=== PATIENT | male | born 1945 | race Caucasian/White ===

== ENCOUNTER 2023-05-17 11:54 | Inpatient (IN) ==
--- NOTE | 2023-05-17 12:49 | Emergency Department Note ---
Impression & Plan Osteomyelitis, Finger pain, Cellulitis ED Provider Note NAME: LILY DAVIS AGE: 78 SEX: M : 1945 ARRIVES VIA: Walk-In INFORMANT: Patient ED PROVIDER(S): Donnie Wilson DO CHIEF COMPLAINT: left finger pain HPI: Patient is a 78-year-old male who presents to the ER for left third finger pain. Patient notes that this has been present for the past week. Patient has been on antibiotics and notes that the swelling in the hand has gotten better as well as the redness of the finger. He denies any fevers. No chest pain or shortness of breath. No nausea, vomiting, or diarrhea. No dysuria, urgency, or frequency. PAST MEDICAL HISTORY:See Below PAST SURGICAL HISTORY:See Below FAMILY HISTORY:See Below SOCIAL HISTORY:See Below HOME MEDICATIONS:See Below ALLERGIES:See Below VITALS:See Below PHYSICAL EXAMINATION: GENERAL: Sitting up in bed, alert, well appearing, well nourished, no distress, non-toxic EYE EXAM: normal conjunctiva. OROPHARYNX: mucous membranes are moist NECK: supple, no nuchal rigidity, no adenopathy, non-tender LUNGS: Clear to auscultation. Normal chest wall mechanics HEART: no murmurs, S1 normal and S2 normal ABDOMEN: abdomen soft, non-tender, normo-active bowel sounds, no masses, no rebound or guarding. UPPER EXTREMITIES: Left third digit is swollen and erythematous with an obvious open wound at the distal phalanx with a small amount of green drainage. Tender to palpation. Radial pulse 2 out of 4. Flexion-extension left shoulder elbow wrist and grasp intact. LOWER EXTREMITIES: No pitting edema. NEURO EXAM: Normal sensorium, cranial nerves II-XII grossly intact, normal speech, no gross weakness of arms, no gross weakness of legs. MEDICAL DECISION MAKING: Patient is a 78-year-old male who presents to the ER for left third digit pain. Patient has been on antibiotics for the past week and symptoms are still presen t. IV was established blood work was obtained. Labs show no significant leukocytosis or anemia. BMP with mild hyponatremia 132. LFTs bilirubin was unremarkable. X-ray of the left third digit does suggest osteomyelitis. Patient was given vancomycin and Rocephin. Updated bedside. Discussed with the hospitalist for further evaluation management treatment. Triage Nursing notes reviewed. Limited review of prior medical records performed Vital Signs: reviewed and remarkable for no significant abnormalities Differential diagnosis: Cellulitis, abscess, MRSA infection, DVT, necrotizing fasciitis, dermatitis, drug eruption, allergic reaction, as well as other pathologies. ER treatment provided: See below Diagnostics interpreted by me include EKG and cardiac monitoring as listed below: -Cardiac Monitoring: An order was placed for continuous cardiac monitoring. The monitor shows a rate of 80 with sinus rhythm. -ECG: none -Laboratory studies:Interpreted by me as stated above in MDM and shown below. Imaging studies: Xrays: As interpreted by me: X-ray left third digit with clear breakdown of the bone CTs show: none Consultation(s): As described in MDM Procedures:none Critical Care: None Past Med/Surg History Social History Smoking Status: Never smoker Preferred Language: French Feels Safe at Home: Yes Allergies Allergies Allergy/AdvReac Type Severity Reaction Status Date / Time No Known Allergies Allergy Unverified 05/17/23 14:20 Home Meds Home Medications Medication Instructions Recorded Confirmed aspirin 81 mg tablet,delayed 81 mg PO QAM 05/17/23 05/17/23 release Results & Data (ED) Vital Signs Vital Signs - 24 hr 05/17/23 12:02 05/17/23 12:18 05/17/23 12:51 Temperature 36.5 C Temperature Source Temporal Artery Scan Pulse Rate 64 83 72 Pulse Rate [Finger] Respiratory Rate 19 16 Respiratory Effort / Characteristics Respiratory Depth Blood Pressure 164/81 H Blood Pressure [Right Arm] Blood Pressure Mean 108 Blood Pressure Mean [Right Arm] Pulse Oximetry 96 95 Oxygen Delivery Method Room Air Sepsis Recent Fever Within 48 Hours No Sepsis New/Unexplained Change in Mental Status N/A Sepsis Action Taken by Nursing No Action Required 05/17/23 14:07 Temperature Temperature Source Pulse Rate Pulse Rate [Finger] 76 Respiratory Rate 16 Respiratory Effort / Characteristics Non-Labored Respiratory Depth Normal Blood Pressure Blood Pressure [Right Arm] 106/71 Blood Pressure Mean Blood Pressure Mean [Right Arm] 82 Pulse Oximetry 97 Oxygen Delivery Method Room Air Sepsis Recent Fever Within 48 Hours Sepsis New/Unexplained Change in Mental Status Sepsis Action Taken by Nursing Laboratory Data 05/17/23 13:00 05/17/23 13:00 Lab Results 05/17/23 05/17/23 Range/Units 13:00 13:00 WBC 6.49 (4.8-10.8) K/ul RBC 5.53 (4.70-6.10) M/uL Hgb 15.8 (14.0-18.0) g/dl Hct 46.7 (42.0-52.0) % MCV 84.4 (80.0-100.0) fL MCH 28.6 (25.0-34.0) pg MCHC 33.8 (32.0-36.0) g/dL RDW Std Deviation 48.9 H (36.4-46.3) fL RDW Coeff of Sylvia 16.0 H (11.5-14.5) % Plt Count 233 (130-400) K/uL MPV 9.3 L (9.4-12.4) fL Immature Gran % (Auto) 0.3 % Neut % (Auto) 73.4 % Lymph % (Auto) 14.2 % Edgar % (Auto) 10.3 % Eos % (Auto) 1.2 % Baso % (Auto) 0.6 % Neut # (Auto) 4.76 (1.40-6.50) K/uL Lymph # (Auto) 0.92 L (1.2-3.4) K/uL Edgar # (Auto) 0.67 H (0.11-0.59) K/uL Eos # (Auto) 0.08 (0-0.50) K/uL Baso # (Auto) 0.04 (0-0.2) K/uL Immature Gran # (Auto) 0.02 (0.01-0.20) K/uL Sodium 132 L (136-145) mmol/L Potassium 4.1 (3.5-5.1) mmol/L Chloride 100 (98-107) mmol/L Carbon Dioxide 25 (21-32) mmol/L Anion Gap 7 (3-11) BUN 7 (6-23) mg/dl Creatinine 0.61 (0.6-1.4) mg/dl Est Cr Clr Drug Dosing 99.7 ml/min Est GFR ( Amer) 112.4 ml/min Est GFR (Non-Af Amer) 97.0 ml/min BUN/Creatinine Ratio 11.5 (10-20) Glucose 100 H (70-99(Fasting)) mg/dl Calcium 8.9 (8.6-10.3) mg/dl Total Bilirubin 0.7 (0.2-1.0) mg/dl AST 18 (13-39) U/L ALT 14 (7-52) U/L Alkaline Phosphatase 93 (34-104) U/L Total Protein 7.4 (6.0-8.3) gm/dl Albumin 3.6 (3.4-5.0) gm/dl Globulin 3.8 (2.5-4.0) gm/dl Albumin/Globulin Ratio 0.9 (0.9-2) Administered Medications Vancomycin HCl 1,500 mg/ (Sodium Chloride) 530 mls @ 200 mls/hr IV NOW ONE Stop: 05/17/23 16:17 Last Admin: 05/17/23 14:03 Dose: 200 mls/hr Documented By: JAIR Imaging Data Radiologist's Impression: Finger X-Ray 05/17/23 12:47 XR finger(s) LT min 2V CLINICAL HISTORY: Left third finger injury with pain. COMPARISON STUDY: None. FINDINGS: Diffuse soft tissue swelling within the left third digit most pronounced distally. Soft tissue irregularity/laceration at the distal left third finger. Near complete bony destruction of the left third finger distal phalanx. Therefore, this is consistent with an osteomyelitis. IMPRESSION: Near complete bony destruction of the left third finger distal phalanx consistent with an osteomyelitis. ACT 112: Negative or not required by law. Electronically signed by: Carlos Roman M.D. 05/17/2023 1:17 PM Discharge Plan Visit Data Chief Complaint: Infection Stated Complaint: L MIDDLE FINGER INFECTED ED Provider: Donnie Wilson Discharge Problem: Osteomyelitis, Finger pain, Cellulitis Patient Disposition: Admitted As Inpatient Discharge Instructions Interventions: ED Discharge Assessment Last Done: 05/17/23 15:52
--- NOTE | 2023-05-17 13:19 | XRay Report ---
XR finger(s) LT min 2V CLINICAL HISTORY: Left third finger injury with pain. COMPARISON STUDY: None. FINDINGS: Diffuse soft tissue swelling within the left third digit most pronounced distally. Soft tis isac irregularity/laceration at the distal left third finger. Near complete bony destruction of the le ft third finger distal phalanx. Therefore, this is consistent with an osteomyelitis. IMPRESSION: Near complete bony destruction of the left third finger distal phalanx consistent with a n osteomyelitis. ACT 112: Negative or not required by law. Electronically signed by: Carlos Roman M.D. 05/17/2023 1:17 PM
[2023-05-17 13:23] LABS: Basophils # (auto) 0.04 K/uL (0-0.2); Basophils % (auto) 0.6 %; Eosinophils # (auto) 0.08 K/uL (0-0.50); Eosinophils % (auto) 1.2 %; Hematocrit (blood only) 46.7 % (42.0-52.0); Hemoglobin 15.8 g/dl (14.0-18.0); Immature Granulocytes # (auto) 0.02 K/uL (0.01-0.20); Immature Granulocytes % (auto) 0.3 %; Lymphocytes # (auto) 0.92 K/uL (1.2-3.4); Lymphocytes % (auto) 14.2 %; Mean Corpuscular Hemoglobin 28.6 pg (25.0-34.0); Mean Corpuscular Hgb Conc 33.8 g/dL (32.0-36.0); Mean Corpuscular Volume 84.4 fL (80.0-100.0); Mean Platelet Volume 9.3 fL (9.4-12.4); Monocytes # (auto) 0.67 K/uL (0.11-0.59); Monocytes % (auto) 10.3 %; Neutrophils # (auto) 4.76 K/uL (1.40-6.50); Neutrophils % (auto) 73.4 %; Platelet Count 233 K/uL (130-400); RDW Standard Deviation 48.9 fL (36.4-46.3); Red Blood Count 5.53 M/uL (4.70-6.10); White Blood Count 6.49 K/ul (4.8-10.8)
[2023-05-17] MEDS ORDERED: cefTRIAXone SODIUM 2,000 MG/70 ML BAG IV STA (13:39)
[2023-05-17] MEDS ORDERED: VANCOMYCIN CONSULT ACTIVE PRN ×2 (13:39→15:56)
[2023-05-17] MEDS ORDERED: VANCOMYCIN HCL 1,500 MG in SODIUM CHLORIDE 0.9% 500 ML IV ONE (13:39)
[2023-05-17 13:40] LABS: Albumin Globulin Ratio 0.9 (0.9-2); Albumin Level 3.6 gm/dl (3.4-5.0); BUN Creatinine Ratio 11.5 (10-20); Bilirubin,Total 0.7 mg/dl (0.2-1.0); Calcium 8.9 mg/dl (8.6-10.3); Creatinine Clr Calc Pharmacy 99.7 ml/min; Est GFR (African American) 112.4 ml/min; Globulin 3.8 gm/dl (2.5-4.0); Potassium 4.1 mmol/L (3.5-5.1); Total Protein 7.4 gm/dl (6.0-8.3)
--- NOTE | 2023-05-17 15:13 | History & Physical Report ---
Date of Service May 17, 2023 Assessment & Plan (1) Finger osteomyelitis, left: (2) Cellulitis: Plan: Patient is 78 y/o M with PMH HTN, h/o TBI and intracranial hemorrhage in 10/2022 presented to ER with c/o left 3rd finger swelling x 2 weeks after reported injur y from dog leash. Outpatient trial of cefadroxil with minimal improvement No signs sepsis. No leukocytosis L Finger Xray: Near complete bony destruction of the left third finger distal phalanx consistent with an osteomyelitis per radiologist. Reviewed by myself with interpretation bony destruction distal phalanx of left 3rd digit Obtain CXR and EKG for pre-op evaluation for possible surgical intervention needs Cefepime, vancomycin Tylenol, oxycodone prn pain NPO midnight Ortho consult CBC, BMP in am (3) Hyponatremia: Plan: Na: 132. Was 136 on 11/14/22 Repeat BMP in am (4) HTN (hypertension): Plan: H/O HTN. No longer on medications. Previously on lisinopril/HCTZ BP in ER 164/81, 106/71 We will monitor BP, if continues to be elevated may need to consider resuming lisinopril (5) History of traumatic brain injury: (6) History of intracranial hemorrhage: Plan: History of fall and intracranial hemorrhage, TBI, C2 fracture in 10/2022. Hospitalized at [facility]. Required rehab at [facility] (7) Tobacco use: Plan: Chewing tobacco Denies nicotine patch currently DVT Prophylaxis SCDs for now Full Code as per discussion with pt Follows with Dr Iyer in [place] for routine care Pt was seen and care coordinated with Dr Murphy. See addendum I spent a total of 75 minutes reviewing notes, outpatient records, labs, medication, coordinating, documenting and providing care for this patient excluding time spent in the performance of separately billed services. History of Present Illness Chief Complaint: Left 3rd Finger swelling Primary Care Provider: Alexis Iyer Patient is 78 y/o M with PMH HTN, h/o TBI and intracranial hemorrhage in 10/2022 presented to ER with c/o left 3rd finger swelling x 2 weeks. Patient states approximately 2 weeks ago noticed a "blood blister" to distal left third finger. He states he was walking his dog when the leash got caught on end of third finger. He reports fingernail fell off. Subsequently he states had diffuse erythema and edema of left finger that extended to left hand. PCP started patient on antibiotic. Pharmacy prescriptions filled reviewed and was prescribed cefadroxil 500 mg twice daily x10 days. Reports started taking on 05/08/2023. Since taking antibiotic patient states has had decreased edema and erythema to hand. He reports distal finger is mildly uncomfortable. Past couple days as noted purulent drainage from distal left third finger. Denies any other trauma or injury. Denies any known history of MRSA. Denies fever/chills, diaphoresis, N/V/D/C, BRO, dizziness, CP, SOB, cough, sore throat, rhinorrhea, abdominal pain, paresthesias, weakness, other extremity edema, rashes, urinary symptoms. Allergies Allergy/AdvReac Type Severity Reaction Status Date / Time No Known Allergies Allergy Unverified 05/17/23 14:20 Home Medications Medication Instructions Recorded Confirmed Type aspirin 81 mg tablet,delayed 81 mg PO QAM 05/17/23 05/17/23 History release cefadroxil 500 mg capsule 500 mg PO BID 05/17/23 05/17/23 History Past Med/Surg History Medical History History of intracranial hemorrhage History of traumatic brain injury HTN (hypertension) Tobacco use Surgical History History of ankle surgery Social History Smoking Status: Never smoker Tobacco Type: Smokeless Tobacco (Dip or Chew) Do You Dip or Chew Tobacco: Yes (1 can every 3 days); Hx Alcohol Use: No Hx Substance Use: No Preferred Language: Greenlandic Communication Ability: Effective Gas Maker Required: No Beliefs That Will Affect Care: None Current Living Situation: Alone Other Information That Helps Us Care for You: No Feels Safe at Home: Yes Safety Concerns: Feels Safe At This Time Assistive Devices: Cane Review of Systems Review of Systems: All systems reviewed & are unremarkable except as noted in HPI & below Physical Exam Physical Exam: General: no distress, WDWN Head: normocephalic, atraumatic Eyes: conjunctiva non-injected, anicteric ENT: normal inspection external ears, nose, mucous membranes moist Neck: supple, trachea midline Lungs: clear, no respiratory distress, no wheezing/rhonchi/rales CV: RRR, no murmur, no pretibial edema Abd: normal BS, soft, non-tender Ext: no cyanosis, no calf tenderness; LUE: +left hand with mild edema, 3rd finger with diffuse erythema and severe edema, distal tuft finger with purulent drainage, fingernail is missing Neuro: A&O x 3, +slow, unsteady gait, no other focal deficits noted, normal affect Skin: warm, dry Results & Data Results & Data Vital Signs (Past 12 Hours) Vital Signs Temp Pulse Pulse Resp BP BP Pulse Ox 05/17/23 14:07 76 16 106/71 97 05/17/23 12:51 72 16 95 05/17/23 12:18 83 05/17/23 12:02 36.5 C 64 19 164/81 H 96 O2 Del Method 05/17/23 14:07 Room Air 05/17/23 12:51 05/17/23 12:18 05/17/23 12:02 Room Air Laboratory Results Short CBC 05/17/23 Range/Units 13:00 WBC 6.49 (4.8-10.8) K/ul Hgb 15.8 (14.0-18.0) g/dl Hct 46.7 (42.0-52.0) % Plt Count 233 (130-400) K/uL BMP 05/17/23 13:00 Sodium 132 L Potassium 4.1 Chloride 100 Carbon Dioxide 25 BUN 7 Creatinine 0.61 Glucose 100 H Calcium 8.9 Liver Function 05/17/23 Range/Units 13:00 Total Bilirubin 0.7 (0.2-1.0) mg/dl AST 18 (13-39) U/L ALT 14 (7-52) U/L Alkaline Phosphatase 93 (34-104) U/L Albumin 3.6 (3.4-5.0) gm/dl Diagnostic Findings Finger X-Ray 05/17/23 12:47 XR finger(s) LT min 2V CLINICAL HISTORY: Left third finger injury with pain. COMPARISON STUDY: None. FINDINGS: Diffuse soft tissue swelling within the left third digit most pronounced distally. Soft tissue irregularity/laceration at the distal left third finger. Near complete bony destruction of the left third finger distal phalanx. Therefore, this is consistent with an osteomyelitis. IMPRESSION: Near complete bony destruction of the left third finger distal phalanx consistent with an osteomyelitis. ACT 112: Negative or not required by law. Electronically signed by: Carlos Roman M.D. 05/17/2023 1:17 PM Chest X-Ray 05/17/23 15:48 XR chest 1V portable HISTORY: pre-op COMPARISON: None. FINDINGS: No pneumothorax. No pleural effusions. The cardiac silhouette is mildly enlarged. No focal lung consolidations to suggest a pneumonia. There is mild diffuse interstitial thickening. This could be chronic or represent mild congestive change. Degenerative changes noted within the shoulders. No acute fractures. IMPRESSION: 1. Mild cardiomegaly. 2. Mild diffuse interstitial thickening. This could be chronic or represent developing congestive change. ACT 112: Negative or not required by law. Electronically signed by: Carlos Roman M.D. 05/17/2023 4:13 PM Code Status & VTE Plan VTE Prophylaxis Plan VTE Prophylaxis will be ordered: Yes Supervising Physician Co-Signing Physician Notes Pt seen and examined by myself, Cary Murphy MD on the day of service. Care was coordinated with Keiry Blanc PA-C. Please refer to her note for additional information. 78yoM admitted for IV abx to treat left middle finger osteomyelitis. On cefepime and vancomycin. Ortho consult. Otherwise as above.
[2023-05-17] MEDS ORDERED: POLYETHYLENE (MIRALAX) 17 GM PACK PO PRN (15:56)
[2023-05-17] MEDS ORDERED: ACETAMINOPHEN 325 MG TAB PO PRN (15:56)
[2023-05-17] MEDS ORDERED: oxyCODONE HCL IR 5 MG TAB (IMMEDIATE RELEASE) PO PRN (15:56)
[2023-05-17] MEDS ORDERED: VANCOMYCIN HCL 1,250 MG in SODIUM CHLORIDE 0.9% 500 ML IV SCH (15:56)
[2023-05-17] MEDS ORDERED: ONDANSETRON INJ 2 MG/ML 2 ML VIAL IV PRN (15:56)
--- NOTE | 2023-05-17 16:16 | XRay Report ---
XR chest 1V portable HISTORY: pre-op COMPARISON: None. FINDINGS: No pneumothorax. No pleural effusions. The cardiac silhouette is mildly enlarged. No focal lung consolidations to suggest a pneumonia. There is mild diffuse interstitial thickening. This could be chronic or represent mild congestive change. Degenerative changes noted within the shoulders. No acute fractures. IMPRESSION: 1. Mild cardiomegaly. 2. Mild diffuse interstitial thickening. This could be chronic or represent developing congestive magdi nge. ACT 112: Negative or not required by law. Electronically signed by: Carlos Roman M.D. 05/17/2023 4:13 PM
--- NOTE | 2023-05-17 16:38 | Pharmacy Report ---
Pharmacy PK ABX Note - Date of Service May 17, 2023 - Assessment and Plan Assessment 78 year old M receiving vancomycin and cefepime for treatment of bone and joint infection. Renal function stable. No culture data. Day #1 of antimicrobial therapy. Plan Vancomycin * Loading dose: 1500 mg IV x 1 * Maintenance dose: 1250 mg IV every 12 hours * Regimen is predicted to achieve target AUC/BEATRIZ of 400-600 mg/L.hr * Will obtain a level around steady state if vancomycin continued. Pharmacy will continue to follow and will adjust dose/frequency as necessary. Thank you. Pharmacy has transitioned to AUC monitoring for vancomycin. AUC/BEATRIZ is the preferred PK/PD target and is associated with decreased risk of nephrotoxicity compared to traditional trough targets.
[2023-05-17] MEDS: CEFEPIME 2,000 MG in SYRINGE 0 ML IV SCH ×2 (17:36→23:58)
[2023-05-17] MEDS ORDERED: Nursing to Pharmacy Communication SCH (18:00)
[2023-05-17] MEDS: VANCOMYCIN HCL 1,250 MG in SODIUM CHLORIDE 0.9% 250 ML IV SCH (20:52)
[2023-05-17] MEDS ORDERED: SODIUM CHLORIDE 0.9% 1000ML 1,000 ML IV SCH (23:30)
[2023-05-18 06:08] LABS: Hematocrit (blood only) 47.9 % (42.0-52.0); Hemoglobin 15.5 g/dl (14.0-18.0); Mean Corpuscular Hemoglobin 28.1 pg (25.0-34.0); Mean Corpuscular Hgb Conc 32.4 g/dL (32.0-36.0); Mean Corpuscular Volume 86.9 fL (80.0-100.0); Mean Platelet Volume 9.1 fL (9.4-12.4); Platelet Count 212 K/uL (130-400); RDW Coefficient of Variation 15.9 % (11.5-14.5); RDW Standard Deviation 49.7 fL (36.4-46.3); Red Blood Count 5.51 M/uL (4.70-6.10); White Blood Count 5.57 K/ul (4.8-10.8)
[2023-05-18 06:26] LABS: BUN Creatinine Ratio 13.5 (10-20); Calcium 8.6 mg/dl (8.6-10.3); Creatinine Clr Calc Pharmacy 82.2 ml/min; Est GFR (African American) 103.8 ml/min; Est GFR (Non-African American) 89.6 ml/min; Potassium 4.3 mmol/L (3.5-5.1)
[2023-05-18] MEDS: CEFEPIME 2,000 MG in SYRINGE 0 ML IV SCH ×2 (07:42→15:34)
[2023-05-18] MEDS: VANCOMYCIN HCL 1,250 MG in SODIUM CHLORIDE 0.9% 250 ML IV SCH (07:45)
[2023-05-18] MEDS ORDERED: GADOBUTROL 30ML VIAL IV ONE (11:17)
--- NOTE | 2023-05-18 11:36 | Electrocardiogram Report ---
Test Reason : Blood Pressure : / mmHG Vent. Rate : 085 BPM Atrial Rate : 085 BPM P-R Int : 164 ms QRS Dur : 082 ms QT Int : 398 ms P-R-T Axes : 067 062 070 degrees QTc Int : 473 ms Sinus rhythm with occasional Premature ventricular complexes Low voltage QRS Borderline ECG No previous ECGs available Confirmed by Magdiel Jimenez ([id number]) on 05/18/2023 11:36:19 AM Referred By: REFERRED SELF Confirmed By:Magdiel Jimenez
--- NOTE | 2023-05-18 12:48 | Orthopedic Consultation ---
Date of Consultation May 18, 2023 Assessment & Plan (1) Finger osteomyelitis, left: 78-year-old male with left middle finger distal phalanx osteomyelitis Pain control IV antibiotic therapy Medical management Elevate left upper extremity MRI ordered. Pending results of MRI will determine definitive intervention History of Present Illness Reason for Consultation: Left middle finger wound/osteomyelitis Attending Physician: Shar Fleming MD History of Present Illness 78-year-old male presenting with a chief complaint of left middle finger distal phalanx wound and erythema. He notes that several weeks ago he was walking his dog whenever the leash became caught between his walker and his finger causing a wound over the dorsal aspect of his hand. Since that time that is progressed. It is not responded well to oral antibiotics. He presented to the emergency department where radiographs were obtained concerning for osteomyelitis and was started on IV antibiotic therapy. Orthopedics was consulted for recommendations. Allergies Allergy/AdvReac Type Severity Reaction Status Date / Time No Known Allergies Allergy Unverified 05/17/23 14:20 Home Medications Medication Instructions Recorded Confirmed Type aspirin 81 mg tablet,delayed 81 mg PO QAM 05/17/23 05/17/23 History release cefadroxil 500 mg capsule 500 mg PO BID 05/17/23 05/17/23 History Patient History Medical History History of intracranial hemorrhage History of traumatic brain injury HTN (hypertension) Tobacco use Surgical History History of ankle surgery Social History Smoking Status: Never smoker Tobacco Type: Smokeless Tobacco (Dip or Chew) Do You Dip or Chew Tobacco: Yes (1 can every 3 days); Hx Alcohol Use: No Hx Substance Use: No Preferred Language: Tamazight Communication Ability: Effective Woodyard Operator Required: No Beliefs That Will Affect Care: None Current Living Situation: Alone Other Information That Helps Us Care for You: No Feels Safe at Home: Yes Safety Concerns: Feels Safe At This Time Assistive Devices: Cane Physical Exam Constitutional: NAD, AAOx3 Musculoskeletal: LUE - wound and swelling over left middle finger distal phalanx - silt srad/med/uln - full painless AROM of middle finger +rad pulse Results & Data Vital Signs (Past 12 Hours) Vital Signs Temp Pulse Resp BP Pulse Ox O2 Del Method 05/18/23 07:33 36.4 C L 76 18 153/87 H 97 Room Air Diagnostic Findings Radiographs of the left hand demonstrate erosive changes of the middle finger distal phalanx
--- NOTE | 2023-05-18 12:51 | Hospitalist Progress Note ---
Date of Service May 18, 2023 Assessment & Plan (1) Finger osteomyelitis, left: (2) Cellulitis: Plan: Patient is 78 y/o M with PMH HTN, h/o TBI and intracranial hemorrhage in 10/2022 presented to ER with c/o left 3rd finger swelling x 2 weeks after reported injur y from dog leash. Outpatient trial of cefadroxil with minimal improvement Left middle finger osteomyelitis --Finger X ray:Near complete bony destruction of the left third finger distal phalanx consistent with an osteomyelitis. MRI:pending Continue vancomycin, cefepime No pain reported Depression orthopedics input Likely needs finger amputation (3) Hyponatremia: Plan: Resolved with IV fluids Sodium 137 today Monitor (4) HTN (hypertension): Plan: H/O HTN. No longer on medications. Previously on lisinopril/HCTZ BP slightly elevated We will consider restarting medications as needed Monitor BP (5) History of traumatic brain injury: (6) History of intracranial hemorrhage: Plan: H/O fall and intracranial hemorrhage, TBI, C2 fracture in 10/2022. Hospitalized at [facility]. (7) Tobacco use: Plan: Chewing tobacco Denies nicotine patch currently DVT Px Lovenox SQ Code Status Full Code Admission and Anticipated Discharge Date Admission Date: May 17, 2023 Subjective Patient is seen and examined at bedside Reports left middle finger wound draining, swollen, erythematous Denies any pain of the finger Also denies any chest pain, dyspnea, dizziness, nausea, vomiting, abdominal pain No other complaints Review of Systems Review of Systems: All systems reviewed & are unremarkable except as noted in Subjective Physical Exam Physical Exam: Physical Exam: Vitals signs as noted above General Appearance:Moderately built and nourished, no apparent distress Head: normocephalic, Atraumatic Eyes: normal inspection, EOMI Neck: supple, Trachea midline Respiratory/Chest: Normal breath sounds, CTA, No accessory muscle use Cardiovascular: S1, S2, No murmur Abdomen/GI:Soft, Non tender, Bowel sounds present Extremities/Musculoskeletal:normal inspection, no edema, Left distal phalanx swollen, erythema, wound, nontender Neurologic/Psych:AAOX3, grossly no focal neurological deficits Skin: normal color, warm Results & Data Results & Data Vital Signs (Past 12 Hours) Vital Signs Temp Pulse Resp BP Pulse Ox O2 Del Method 05/18/23 07:33 36.4 C L 76 18 153/87 H 97 Room Air Laboratory Results Short CBC 05/17/23 05/18/23 Range/Units 13:00 05:24 WBC 6.49 5.57 (4.8-10.8) K/ul Hgb 15.8 15.5 (14.0-18.0) g/dl Hct 46.7 47.9 (42.0-52.0) % Plt Count 233 212 (130-400) K/uL BMP 05/17/23 05/18/23 13:00 05:24 Sodium 132 L 137 Potassium 4.1 4.3 Chloride 100 106 Carbon Dioxide 25 25 BUN 7 10 Creatinine 0.61 0.74 Glucose 100 H 80 Calcium 8.9 8.6 Liver Function 05/17/23 Range/Units 13:00 Total Bilirubin 0.7 (0.2-1.0) mg/dl AST 18 (13-39) U/L ALT 14 (7-52) U/L Alkaline Phosphatase 93 (34-104) U/L Albumin 3.6 (3.4-5.0) gm/dl
--- NOTE | 2023-05-18 14:52 | Magnetic Resonance Report ---
MR hand LT wo/w con HISTORY: third finger osteomyelitis TECHNIQUE: Multiplanar multisequence MRI of the left hand was performed both before and after the int ravenous administration of 8 cc of Gadavist contrast. COMPARISON STUDY: Left middle finger radiograph 05/17/2023. FINDINGS: There is again noted near complete bony destruction the distal phalanx of the left middle f krysten consistent with osteomyelitis. There is T2 hyperintense, T1 hypointense marrow signal within th e mid to distal left third finger middle phalanx. This also demonstrates enhancement. Therefore, this is consistent with an additional site of osteomyelitis. No abnormal marrow signal or enhancement wit hin the proximal phalanx of the middle finger. The remaining osseous structures demonstrate a normal marrow signal intensity. Degenerative changes within the interphalangeal joints again noted. Soft tis isac swelling/edema throughout the middle finger associated enhancement consistent with a cellulitis. Probable dorsal skin ulceration seen at the distal finger. No loculated fluid collections to suggest an abscess. No acute fracture or dislocation. IMPRESSION: 1. Osteomyelitis involving the middle and distal phalanges of the left middle finger as described abo ve near complete bony destruction of the distal phalanx. 2. No loculated fluid collections to suggest an abscess. 3. No additional sites of osteomyelitis within the left hand. ACT 112: Negative or not required by law. Electronically signed by: Carlos Roman M.D. 05/18/2023 2:49 PM
[2023-05-18] MEDS: ENOXAPARIN INJ 40 MG/0.4 ML SYR SQ SCH (15:30)
[2023-05-18] MEDS: VANCOMYCIN HCL 1,000 MG in SODIUM CHLORIDE 0.9% 250 ML IV SCH (20:46)
[2023-05-19] MEDS: CEFEPIME 2,000 MG in SYRINGE 0 ML IV SCH ×4 (00:16→23:47)
[2023-05-19 06:00] LABS: Hematocrit (blood only) 46.2 % (42.0-52.0); Hemoglobin 15.4 g/dl (14.0-18.0); Mean Corpuscular Hemoglobin 28.6 pg (25.0-34.0); Mean Corpuscular Hgb Conc 33.3 g/dL (32.0-36.0); Mean Corpuscular Volume 85.9 fL (80.0-100.0); Mean Platelet Volume 9.1 fL (9.4-12.4); Platelet Count 213 K/uL (130-400); RDW Coefficient of Variation 15.7 % (11.5-14.5); RDW Standard Deviation 48.6 fL (36.4-46.3); Red Blood Count 5.38 M/uL (4.70-6.10); White Blood Count 5.65 K/ul (4.8-10.8)
[2023-05-19 06:17] LABS: BUN Creatinine Ratio 15.1 (10-20); Calcium 8.8 mg/dl (8.6-10.3); Creatinine Clr Calc Pharmacy 83.3 ml/min; Est GFR (African American) 104.4 ml/min; Est GFR (Non-African American) 90.1 ml/min; Magnesium 2.2 mg/dl (1.7-2.4); Potassium 4.3 mmol/L (3.5-5.1)
[2023-05-19] MEDS: VANCOMYCIN HCL 1,000 MG in SODIUM CHLORIDE 0.9% 250 ML IV SCH (07:27)
[2023-05-19] MEDS: ENOXAPARIN INJ 40 MG/0.4 ML SYR SQ SCH (08:29)
--- NOTE | 2023-05-19 11:44 | Orthopedic Progress Note ---
Date of Service May 19, 2023 Assessment & Plan (1) Finger osteomyelitis, left: Plan: 78-year-old male with left middle finger distal/middle phalanx osteomyelitis Pain control IV antibiotic therapy Medical management Elevate left upper extremity Will discuss care with my hand surgeon colleagues to determine definitive coarse of action, may give diet for today. NPO at [place]. Admission and Anticipated Discharge Date Admission Date: May 17, 2023 Subjective Pt S+E, NAEO, pain controlled. Physical Exam Constitutional: NAD, AAOx3 Musculoskeletal: LUE - middle finger, diffuse swelling w/ mild erythema, eschar over dorsal aspect of distal phalanx - no pain w/ flexion/extension of middle finger - silt srad/med/uln - fires epl/fpl/edc/fdp/dennys + rad Results & Data Vital Signs (Past 12 Hours) Vital Signs Temp Pulse Resp BP Pulse Ox O2 Del Method 05/19/23 08:14 36.5 C 77 18 131/84 99 Room Air
--- NOTE | 2023-05-19 14:28 | Pharmacy Report ---
Pharmacy PK ABX Note - Date of Service May 19, 2023 - Assessment and Plan Assessment 78 year old M receiving vancomycin and cefepime for treatment of bone and joint infection. Renal function stable. No culture data. Day #3 of antimicrobial therapy. Plan Vancomycin * Random level this afternoon, 17.5mcg/mL (~6hr level). Predicted to achieve ssAUC 440mg/L.hr with 69% probability. * Will optimize maintenance dose to original regimen -1250 mg IV every 12 hours * Regimen is predicted to achieve target AUC/BEATRIZ of 400-600 mg/L.hr * Repeat level in ~ 48h or sooner if clinically indicated. Pharmacy will continue to follow and will adjust dose/frequency as necessary. Thank you. Pharmacy has transitioned to AUC monitoring for vancomycin. AUC/BEATRIZ is the preferred PK/PD target and is associated with decreased risk of nephrotoxicity compared to traditional trough targets.
--- NOTE | 2023-05-19 15:34 | Hospitalist Progress Note ---
Date of Service May 19, 2023 Assessment & Plan (1) Finger osteomyelitis, left: (2) Cellulitis: Plan: Patient is 78 y/o M with PMH HTN, h/o TBI and intracranial hemorrhage in 10/2022 presented to ER with c/o left 3rd finger swelling x 2 weeks after reported injur y from dog leash. Outpatient trial of cefadroxil with minimal improvement Left middle finger osteomyelitis --Finger X ray:Near complete bony destruction of the left third finger distal phalanx consistent with an osteomyelitis. MRI:Osteomyelitis involving the middle and distal phalanges of the left middle finger as described above near complete bony destruction of the distal phalanx. No loculated fluid collections to suggest an abscess. No additional sites of osteomyelitis within the left hand. Continue vancomycin, cefepime for now Appreciate orthopedics input NPO after midnight for possible surgery Tmw (3) Hyponatremia: Plan: Resolved with IV fluids Sodium 135 today Monitor (4) HTN (hypertension): Plan: H/O HTN. No longer on medications. Previously on lisinopril/HCTZ BP slightly elevated on presentation Will consider restarting medications as needed BP stable today (5) History of traumatic brain injury: (6) History of intracranial hemorrhage: Plan: H/O fall and intracranial hemorrhage, TBI, C2 fracture in 10/2022. Hospitalized at [facility]. (7) Tobacco use: Plan: Chewing tobacco Denies nicotine patch currently DVT Px Lovenox SQ Code Status Full Code Admission and Anticipated Discharge Date Admission Date: May 17, 2023 Subjective Patient is seen and examined at bedside Denies any left middle finger wound pain No new complaints Denies any chest pain, dyspnea, dizziness, nausea, vomiting, abdominal pain Review of Systems Review of Systems: All systems reviewed & are unremarkable except as noted in Subjective Physical Exam Physical Exam: Physical Exam: Vitals signs as noted above General Appearance:Moderately built and nourished, no apparent distress Head: normocephalic, Atraumatic Eyes: normal inspection, EOMI Neck: supple, Trachea midline Respiratory/Chest: Normal breath sounds, CTA, No accessory muscle use Cardiovascular: S1, S2, No murmur Abdomen/GI:Soft, Non tender, Bowel sounds present Extremities/Musculoskeletal:normal inspection, no edema, Left distal phalanx swollen, erythema, wound, nontender Neurologic/Psych:AAOX3, grossly no focal neurological deficits Skin: normal color, warm Results & Data Results & Data Vital Signs (Past 12 Hours) Vital Signs Temp Pulse Resp BP Pulse Ox O2 Del Method 05/19/23 08:00 Room Air 05/19/23 08:14 36.5 C 77 18 131/84 99 Room Air Laboratory Results Short CBC 05/19/23 Range/Units 05:33 WBC 5.65 (4.8-10.8) K/ul Hgb 15.4 (14.0-18.0) g/dl Hct 46.2 (42.0-52.0) % Plt Count 213 (130-400) K/uL BMP 05/19/23 05:33 Sodium 135 L Potassium 4.3 Chloride 104 Carbon Dioxide 28 BUN 11 Creatinine 0.73 Glucose 84 Calcium 8.8
[2023-05-19] MEDS: VANCOMYCIN HCL 1,250 MG in SODIUM CHLORIDE 0.9% 250 ML IV SCH (20:20)
[2023-05-20 06:32] LABS: Hematocrit (blood only) 49.2 % (42.0-52.0); Hemoglobin 16.3 g/dl (14.0-18.0); Mean Corpuscular Hemoglobin 28.3 pg (25.0-34.0); Mean Corpuscular Hgb Conc 33.1 g/dL (32.0-36.0); Mean Corpuscular Volume 85.6 fL (80.0-100.0); Mean Platelet Volume 9.6 fL (9.4-12.4); Platelet Count 227 K/uL (130-400); RDW Standard Deviation 48.8 fL (36.4-46.3); Red Blood Count 5.75 M/uL (4.70-6.10); White Blood Count 5.05 K/ul (4.8-10.8)
[2023-05-20 06:45] LABS: BUN Creatinine Ratio 18.2 (10-20); Calcium 9.1 mg/dl (8.6-10.3); Creatinine Clr Calc Pharmacy 92.1 ml/min; Est GFR (African American) 108.8 ml/min; Est GFR (Non-African American) 93.9 ml/min; Potassium 4.3 mmol/L (3.5-5.1)
[2023-05-20] MEDS: CEFEPIME 2,000 MG in SYRINGE 0 ML IV SCH ×3 (07:19→23:42)
[2023-05-20] MEDS: VANCOMYCIN HCL 1,250 MG in SODIUM CHLORIDE 0.9% 250 ML IV SCH ×2 (07:19→19:49)
[2023-05-20] MEDS: ENOXAPARIN INJ 40 MG/0.4 ML SYR SQ SCH (07:23)
--- NOTE | 2023-05-20 12:07 | Student Report ---
[facility] Med Student Progress Note Advanced Practice Practitioner Student Attestation: Note to be used for clinical decision making or plan of care formulation. Date of Service Date of service: May 20, 2023 Subjective Subjective: NAEO. Pt resting in bed. He denies any fever, chills, BRO, CP, SOB, N/V/D, change in bowel/bladder habits. Denies pain to left 3rd finger. ROS ROS: See above for pertinent positives & negatives. A total of 10 systems reviewed and were otherwise negative. Physical Exam Physical Exam: Vital signs reviewed. General: Well-appearing, in no significant distress. Converses easily and appropriately. HEENT: No scleral icterus, PERRLA, neck supple. Atraumatic. Cardiovascular: Regular rate and rhythm, no extra sounds. Pulmonary: Clear to auscultation bilaterally, normal work of breathing. Abdomen: Soft, nontender, nondistended, positive bowel sounds. Musculoskeletal: Atraumatic, no peripheral edema. Neurologic: Patient awake alert and oriented x 3, full strength in all 4 extremities. Skin: Warm, dry, no rash. Results Results: Vital Signs Temp 36.4 C L 05/20/23 07:17 Pulse 102 H 05/20/23 07:17 Resp 16 05/20/23 07:17 BP 147/73 H 05/20/23 07:17 Pulse Ox 94 05/20/23 07:17 O2 Del Method Room Air 05/20/23 07:17 Intake & Output 05/19/23 05/20/23 05/20/23 18:59 06:59 18:59 Intake Total 270 / 545 275 / 545 275 / 275 Balance 270 / 545 275 / 545 275 / 275 Intake: IV 270 / 545 275 / 545 275 / 275 Vancomycin HCl 1,250 mg In 270 / 545 275 / 545 275 / 275 Sodium Chloride 0.9% 250 ml @ 200 mls/hr IV Q12H [facility] Rx#: [id number] Other: Other Intake Source NPO # Unmeasured Voids 1 Short CBC 05/20/23 Range/Units 05:46 WBC 5.05 (4.8-10.8) K/ul Hgb 16.3 (14.0-18.0) g/dl Hct 49.2 (42.0-52.0) % Plt Count 227 (130-400) K/uL BMP 05/20/23 05:46 Sodium 137 Potassium 4.3 Chloride 106 Carbon Dioxide 26 BUN 12 Creatinine 0.66 Glucose 87 Calcium 9.1 A&P A&P: 1. Osteomyelitis left 3rd finger, cellulitis Xray consistent with osteomyelitis with near complete bone destruction. MRI with similar findings. Continue vancomycin and cefepime at least until pt has surgery, may c/s ID for further recs depending on OR findings/cultures. Orthopedics onboard, surgical intervention has not yet been ruled out Daily CBC, BMP, Mag Continue acetaminophen for mild-mod pain and oxycodone for mod-severe pain 2. Hyponatremia Improved, todays Na 137 Continue daily BMP 3. HTN Pt is not on home regimen. BP has been stable this admission. Consider restarting BP medication if required. 4. TBI with intercranial hemorrhage hx Pt without residuals. Not on any home regimen. 5. Diet/Bowel Continue regular diet (will make NPO if surgery scheduled) Continue Miralax 6. DVT Proph Enoxaparin 40mg daily 7. Disposition Remains under hospitalist group. Ortho following, may need surgical intervention.
--- NOTE | 2023-05-20 15:02 | Hospitalist Progress Note ---
Date of Service May 20, 2023 Assessment & Plan (1) Finger osteomyelitis, left: (2) Cellulitis: Plan: Patient is 78 y/o M with PMH HTN, h/o TBI and intracranial hemorrhage in 10/2022 presented to ER with c/o left 3rd finger swelling x 2 weeks after reported injur y from dog leash. Outpatient trial of cefadroxil with minimal improvement. Left 3rd Finger Osteomyelitis MRI - Osteomyelitis involving the middle and distal phalanges of the left middle finger as described above near complete bony destruction of the distal phalanx. On Vanco and cefepime (day 4) Ortho consulted, pending evaluation from hand specialist Dr. Dorman (3) Hyponatremia: Plan: Resolved with IV fluids Na+ 137 today Monitor (4) HTN (hypertension): Plan: H/O HTN. No longer on medications. Previously on lisinopril/HCTZ BP slightly elevated on presentation Will consider restarting medications as needed BP remains controlled (5) History of traumatic brain injury: (6) History of intracranial hemorrhage: Plan: H/O fall and intracranial hemorrhage, TBI, C2 fracture in 10/2022. Hospitalized at [facility]. (7) Tobacco use: Plan: Chewing tobacco Denies nicotine patch currently DVT PROPHYLAXIS SQ Lovenox Patient seen in collaboration with Dr. Fleming. Admission and Anticipated Discharge Date Admission Date: May 17, 2023 Supervising Physician Co-Signing Physician Notes Patient is seen and examined at bedside. No new complaints. Discussed with patient's family at bedside. Reviewed the chart personally. Continue IV antibiotics. Eventually needs Amputation of Left middle finger. Orthopedics on board. BP Variable, may need to be restarted on antihypertensives. Agree with physical exam, assessment and plan. Patient's care is coordinated with Cahnte Guzman NP. Please refer to the documentation above for details of patient's presentation and for discussion of other issues. Subjective Follow-up for left third finger osteomyelitis. Patient seen and examined. Sitting on the edge of the bed, offers no complaints. Denies any pain in the left third finger. Remains afebrile. No chest pain or shortness of breath. Denies abdominal pain or nausea. Review of Systems Review of Systems: All systems reviewed & are unremarkable except as noted in Subjective Physical Exam Constitutional: WD/WN, vitals as above no acute distress Sitting on edge of the bed Respiratory: normal respiratory effort, lungs clear to auscultation Cardiovascular: Rate/Rhythm: regular rate and regular rhythm Vessels: normal peripheral pulses Extremities: no edema Gastrointestinal (Abdomen): Percussion/Palpation: abdomen soft; abdomen nontender Musculoskeletal: Significant swelling noted to the left third finger, mild erythema, scab/eschar noted at finger tip, CSM checks intact Skin: no rashes, warm and dry Neurologic: no focal motor deficits Psychiatric: A+Ox3, euthymic affect Results & Data Results & Data Vital Signs (Past 12 Hours) Vital Signs Temp Pulse Resp BP Pulse Ox O2 Del Method 05/20/23 14:37 36.5 C 73 18 133/64 97 Room Air 05/20/23 07:17 36.4 C L 102 H 16 147/73 H 94 Room Air Laboratory Results Short CBC 05/20/23 Range/Units 05:46 WBC 5.05 (4.8-10.8) K/ul Hgb 16.3 (14.0-18.0) g/dl Hct 49.2 (42.0-52.0) % Plt Count 227 (130-400) K/uL [facility] 05/20/23 05:46 Sodium 137 Potassium 4.3 Chloride 106 Carbon Dioxide 26 BUN 12 Creatinine 0.66 Glucose 87 Calcium 9.1
[2023-05-21] MEDS: CEFEPIME 2,000 MG in SYRINGE 0 ML IV SCH ×3 (08:01→23:51)
[2023-05-21] MEDS: VANCOMYCIN HCL 1,250 MG in SODIUM CHLORIDE 0.9% 250 ML IV SCH ×2 (08:01→19:53)
[2023-05-21] MEDS: ENOXAPARIN INJ 40 MG/0.4 ML SYR SQ SCH (08:01)
--- NOTE | 2023-05-21 10:08 | Student Report ---
[facility] Med Student Progress Note Advanced Practice Practitioner Student Attestation: Note to be used for clinical decision making or plan of care formulation. Date of Service Date of service: May 21, 2023 Subjective Subjective: NAEO. Pt examined at bedside, denies fever, chills, BRO, CP, SOB, N/V/D, pain in finger or elsewhere. Pt feels that swelling is better today. Has no other quest ions or complaints. ROS ROS: See above for pertinent positives & negatives. A total of 10 systems reviewed and were otherwise negative. Physical Exam Physical Exam: Vital signs reviewed. General: Well-appearing [], in no significant distress. HEENT: No scleral icterus, PERRLA, neck supple. Atraumatic. Cardiovascular: Regular rate and rhythm, no extra sounds. Pulmonary: Clear to auscultation bilaterally, normal work of breathing. Abdomen: Soft, nontender, nondistended, positive bowel sounds. Musculoskeletal: Atraumatic, no peripheral edema. Neurologic: Patient awake alert and oriented x 3, full strength in all 4 extremities. Cranial nerves 2 through 12 grossly intact. Skin: Warm, dry, no rash Results Results: Vital Signs Temp 36.5 C 05/21/23 07:54 Pulse 64 05/21/23 07:54 Resp 16 05/21/23 07:54 BP 131/68 05/21/23 07:54 Pulse Ox 97 05/21/23 07:54 O2 Del Method Room Air 05/21/23 07:54 Intake & Output 05/20/23 05/21/23 05/21/23 18:59 06:59 18:59 Intake Total 275 / 550 275 / 550 36.667 / 36.667 Balance 275 / 550 275 / 550 36.667 / 36.667 Intake: IV 275 / 550 275 / 550 36.667 / 36.667 Vancomycin HCl 1,250 mg In 275 / 550 275 / 550 36.667 / 36.667 Sodium Chloride 0.9% 250 ml @ 200 mls/hr IV Q12H [facility] Rx#: [id number] Other: # Unmeasured Voids 1 A&P A&P: 1. Osteomyelitis left 3rd finger, cellulitis. Xray and MRI consistent with osteomyelitis with near complete bone destruction. Revised cardiac index is low for this type of surgery Day 5 of vancomycin and cefepime, continue for now Orthopedics onboard, needs surgical plan Daily CBC, BMP, Mag Continue acetaminophen for mild-mod pain, oxycodone for mod-severe pain 2. Hyponatremia Resolved Continue daily BMP 3. HTN Pt is not on home regimen. BP has been stable this admission. Consider restarting BP medication if required. 4. TBI with intercranial hemorrhage hx Pt without residuals. Not on any home regimen. 5. Diet/Bowel Continue regular diet (will make NPO if surgery scheduled) Continue Miralax 6. DVT Proph Enoxaparin 40mg daily 7. Disposition Remains under hospitalist group. Ortho following, needs surgical plan.
--- NOTE | 2023-05-21 13:16 | Hospitalist Progress Note ---
Date of Service May 21, 2023 Assessment & Plan (1) Finger osteomyelitis, left: (2) Cellulitis: Plan: Patient is 78 y/o M with PMH HTN, h/o TBI and intracranial hemorrhage in 10/2022 presented to ER with c/o left 3rd finger swelling x 2 weeks after reported injur y from dog leash. Outpatient trial of cefadroxil with minimal improvement. Left 3rd Finger Osteomyelitis MRI - Osteomyelitis involving the middle and distal phalanges of the left middle finger as described above near complete bony destruction of the distal phalanx. On Vanco and cefepime (day 5) Ortho consulted, pending evaluation from hand specialist Dr. Dorman --tentative plan for OR on 05/23 (3) Hyponatremia: Plan: Resolved with IV fluids Na+ 137 05/20 Monitor (4) HTN (hypertension): Plan: H/O HTN. No longer on medications. Previously on lisinopril/HCTZ BP slightly elevated on presentation Will consider restarting medications as needed BP remains controlled (5) History of traumatic brain injury: (6) History of intracranial hemorrhage: Plan: H/O fall and intracranial hemorrhage, TBI, C2 fracture in 10/2022. Hospitalized at [facility]. (7) Tobacco use: Plan: Chewing tobacco Denies nicotine patch currently DVT PROPHYLAXIS SQ Lovenox Patient seen in collaboration with Dr. Fleming. Admission and Anticipated Discharge Date Admission Date: May 17, 2023 Supervising Physician Co-Signing Physician Notes Patient is seen and examined at bedside. No new complaints. Discussed with patient's family at bedside. Reviewed the chart personally. Continue IV antibiotics. Eventually needs Amputation of Left middle finger. Orthopedics on board. BP elevated. start on losartan 25mg daily. Agree with physical exam, assessment and plan. Patient's care is coordinated with Chante Guzman NP. Please refer to the documentation above for details of patient's presentation and for discussion of other issues. Tentative surgery on 817. Subjective Follow-up for left third finger osteomyelitis. Patient seen and examined. Sitting on the edge of the bed, offers no complaints. Denies any pain in the left third finger. Remains afebrile. No chest pain or shortness of breath. Denies abdominal pain or nausea. Review of Systems Review of Systems: All systems reviewed & are unremarkable except as noted in Subjective Physical Exam Constitutional: WD/WN, vitals as above no acute distress Respiratory: normal respiratory effort, lungs clear to auscultation Cardiovascular: Rate/Rhythm: regular rate and regular rhythm Vessels: normal peripheral pulses Extremities: no edema Gastrointestinal (Abdomen): Percussion/Palpation: abdomen soft; abdomen nontender Musculoskeletal: Left third finger edematous however improved from yesterday, minimal erythema present, scab/eschar present on the tip of the finger, CSM checks intact Skin: no rashes, warm and dry Neurologic: no focal motor deficits Psychiatric: A+Ox3, euthymic affect Results & Data Results & Data Vital Signs (Past 12 Hours) Vital Signs Temp Pulse Resp BP Pulse Ox O2 Del Method 05/21/23 07:54 36.5 C 64 16 131/68 97 Room Air
--- NOTE | 2023-05-21 14:23 | Pharmacy Report ---
Pharmacy PK ABX Note - Date of Service May 21, 2023 - Assessment and Plan Assessment 05/21 * Vancomycin level obtained this morning to ensure that current dosing regimen remains appropriate. * Level: 17.2 mcg/mL -- indicating adequate vanc dosing * Renal function remains stable. 05/19 * 78 year old M receiving vancomycin and cefepime for treatment of bone and joint infection. Renal function stable. No culture data. * Day #3 of antimicrobial therapy. Plan Vancomycin * Random level this afternoon, 17.2 mcg/mL * Regimen is predicted to achieve target AUC/BEATRIZ of 400-600 mg/L.hr * Continue vanc 1250 mg IV every 12 hours * No further levels have been ordered at this time. If patient remains on vanc therapy, will consider the need for additional monitoring in 2-3 days, or sooner if any acute changes in pt status or renal function. Cefepime 2gm IV q8h Pharmacy will continue to follow and will adjust dose/frequency as necessary. Thank you. Pharmacy has transitioned to AUC monitoring for vancomycin. AUC/BEATRIZ is the preferred PK/PD target and is associated with decreased risk of nephrotoxicity compared to traditional trough targets.
[2023-05-21] MEDS: LOSARTAN POTASSIUM 25 MG TAB PO SCH (17:08)
--- NOTE | 2023-05-21 17:16 | Orthopedic Consultation ---
Date of Consultation May 21, 2023 Assessment & Plan (1) Finger osteomyelitis, left: He clearly has a longstanding infection in his left middle finger. This appears to have been going on for much longer than 1.5 weeks. He has advanced osteomyelitis with near complete destruction and osteolysis of the entire distal phalanx, and osteomyelitis extending up into the middle phalanx as well. I would highly recommend the fairly extensive irrigation and debridement of this left middle finger with amputation. Based on bone viability on MRI and surrounding soft tissue envelope, I suspect I will need to amputate the finger at least at the middle phalanx level. I think I will likely be able to maintain the proximal phalanx and PIP joint. Hopefully I will be able to maintain the FDS insertions into the middle phalanx to maintain PIP joint flexion, but this will be an intraoperative decision. He voiced understanding and agreement this plan. We will plan for the surgery on 05/23. NPO after midnight Tuesday 05/22. Risks, benefits, and alternatives of surgery were explained in detail. The surgical procedure, as well as postoperative recovery and rehabilitation, was also explained in detail. Risks include bleeding; persistent infection; damage to surrounding structures such as nerves, blood vessels, and tendons that run in the area; persistent pain, weakness, or stiffness; or need for further surgery. The patient understands all of this and wishes to proceed with surgery. Informed consent was obtained. History of Present Illness Reason for Consultation: Left middle finger infection Requesting Physician: Dr. Stack Attending Physician: Shar Fleming MD History of Present Illness Mr. Espinal is a 78-year-old [id number] male who has had swelling and drainage from his left middle finger for some time. He states that his only been about 1.5 weeks, but based on the appearance of his finger and the wound, I suspect that this has been going on for much longer and he is a relatively poor historian. He states that he got his finger caught in a leash and it pulled off his fingernail. He is noted some drainage from the wound, and a lot of swelling in his finger. He actually denies any significant pain. 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 He states this is from rheumatoid arthritis. 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 Hand surgery subspecialty consultation was requested from Dr. Stack for further surgical evaluation and management of this infection. Allergies Allergy/AdvReac Type Severity Reaction Status Date / Time No Known Allergies Allergy Unverified 05/17/23 14:20 Home Medications Medication Instructions Recorded Confirmed Type aspirin 81 mg tablet,delayed 81 mg PO QAM 05/17/23 05/17/23 History release cefadroxil 500 mg capsule 500 mg PO BID 05/17/23 05/17/23 History Patient History Medical History History of intracranial hemorrhage History of traumatic brain injury HTN (hypertension) Tobacco use Surgical History History of ankle surgery Social History Smoking Status: Never smoker Tobacco Type: Smokeless Tobacco (Dip or Chew) Do You Dip or Chew Tobacco: Yes (1 can every 3 days); Hx Alcohol Use: No Hx Substance Use: No Preferred Language: Kiswahili Communication Ability: Effective Religious Leader Required: No Beliefs That Will Affect Care: None Current Living Situation: Alone Other Information That Helps Us Care for You: No Feels Safe at Home: Yes Safety Concerns: Feels Safe At This Time Assistive Devices: Cane and Walker Physical Exam Physical Exam: Examination of the left middle finger reveals significant fusiform swelling of the entire digit. Mild to moderate erythema. He denies any tenderness to palpation. No significant swelling extending up into the hand, including on the volar aspect along the flexor tendon. No tenderness palpation along the flexor tendon sheath. There is a clearly chronic appearing wound at the distal tip of the finger with absence of the distal tip and a large scab. There is expressible purulent drainage from this wound. There is surrounding trophic changes of the skin, indicating a chronic wound. Results & Data Vital Signs (Past 12 Hours) Vital Signs Temp Pulse Resp BP Pulse Ox O2 Del Method 05/21/23 15:27 36.6 C 67 16 160/79 H 99 Room Air 05/21/23 07:54 36.5 C 64 16 131/68 97 Room Air Diagnostic Findings Previous x-rays of the left middle finger from May 17 were independently interpreted by me. They show severe destruction and osteolysis of almost the entirety of the distal phalanx of the the middle finger. Only the most proximal base of the distal phalanx is still visible on the x-ray. There is some early osteolysis at the middle phalangeal head, but not much into the middle phalangeal shaft yet. Obvious surrounding soft tissue swelling. MRI of the left hand from May 18 was independently interpreted by me. It shows evidence of osteomyelitis of the distal and middle phalanges of the left middle finger. There again is severe destruction of the distal phalanx. There is edema extending along the majority of the middle phalanx, and low T1 signal indicating poor bone viability from about to the midshaft level of the middle phalanx and extending distally into the middle phalangeal head. No significant edema is seen in the proximal phalanx. There is significant subcutaneous tissue edema and swelling consistent with cellulitis extending up into the proximal phalanx level of the finger, but not into the hand. No significant fluid collection in the flexor tendon sheath to indicate infectious flexor tenosynovitis.
[2023-05-22 07:10] LABS: Hematocrit (blood only) 50.1 % (42.0-52.0); Hemoglobin 16.3 g/dl (14.0-18.0); Mean Corpuscular Hemoglobin 27.9 pg (25.0-34.0); Mean Corpuscular Hgb Conc 32.5 g/dL (32.0-36.0); Mean Corpuscular Volume 85.8 fL (80.0-100.0); Mean Platelet Volume 9.5 fL (9.4-12.4); Platelet Count 249 K/uL (130-400); RDW Coefficient of Variation 15.6 % (11.5-14.5); RDW Standard Deviation 48.6 fL (36.4-46.3); Red Blood Count 5.84 M/uL (4.70-6.10); White Blood Count 5.34 K/ul (4.8-10.8)
[2023-05-22 07:25] LABS: Calcium 9.2 mg/dl (8.6-10.3); Creatinine Clr Calc Pharmacy 103.1 ml/min; Est GFR (Non-African American) 98.3 ml/min; Potassium 4.3 mmol/L (3.5-5.1)
[2023-05-22] MEDS: LOSARTAN POTASSIUM 25 MG TAB PO SCH (08:14)
[2023-05-22] MEDS: ENOXAPARIN INJ 40 MG/0.4 ML SYR SQ SCH (08:14)
[2023-05-22] MEDS: VANCOMYCIN HCL 1,250 MG in SODIUM CHLORIDE 0.9% 250 ML IV SCH ×2 (08:49→19:55)
[2023-05-22] MEDS: CEFEPIME 2,000 MG in SYRINGE 0 ML IV SCH ×3 (08:49→23:00)
--- NOTE | 2023-05-22 16:00 | Hospitalist Progress Note ---
Date of Service May 22, 2023 Assessment & Plan (1) Finger osteomyelitis, left: (2) Cellulitis: Plan: Patient is 78 y/o M with PMH HTN, h/o TBI and intracranial hemorrhage in 10/2022 presented to ER with c/o left 3rd finger swelling x 2 weeks after reported injur y from dog leash. Outpatient trial of cefadroxil with minimal improvement. Left 3rd Finger Osteomyelitis MRI - Osteomyelitis involving the middle and distal phalanges of the left middle finger as described above near complete bony destruction of the distal phalanx. On Vanco and cefepime (day 6) Plan for or tomorrow. N.p.o. from midnight (3) Hyponatremia: Plan: Resolved with IV fluids Monitor (4) HTN (hypertension): Plan: H/O HTN. No longer on medications. Previously on lisinopril/HCTZ BP slightly elevated on presentation Blood pressure remains controlled (5) History of traumatic brain injury: (6) History of intracranial hemorrhage: Plan: H/O fall and intracranial hemorrhage, TBI, C2 fracture in 10/2022. Hospitalized at [facility]. (7) Tobacco use: Plan: Chewing tobacco Denies nicotine patch currently DVT PROPHYLAXIS SQ Lovenox on hold Please note the above document was generated using voice recognition software. It may contain grammatical, syntax or spelling errors. Any formal questions or concerns about the content, text or information contained within the body of this dictation should be directly addressed to the provider for clarification Admission and Anticipated Discharge Date Admission Date: May 17, 2023 Subjective Patient seen and examined at bedside; comfortable. Not in distress. Afebrile, hemodynamic stable. Review of Systems Review of Systems: All systems reviewed & are unremarkable except as noted in Subjective Physical Exam Constitutional: WD/WN, vitals as above no acute distress Respiratory: normal respiratory effort, lungs clear to auscultation Cardiovascular: Rate/Rhythm: regular rate and regular rhythm Vessels: normal peripheral pulses Extremities: no edema Gastrointestinal (Abdomen): Percussion/Palpation: abdomen soft; abdomen nontender Musculoskeletal: Left third finger swelling, erythema present., scab/eschar present on the tip of the finger, CSM checks intact Skin: no rashes, warm and dry Neurologic: no focal motor deficits Psychiatric: A+Ox3, euthymic affect Results & Data Results & Data Vital Signs (Past 12 Hours) Vital Signs Temp Pulse Resp BP Pulse Ox O2 Del Method 05/22/23 15:33 36.5 C 109 H 18 136/69 92 Room Air 05/22/23 08:00 36.4 C L 65 16 135/73 96 Room Air
[2023-05-23 07:32] LABS: BUN Creatinine Ratio 26.3 (10-20); Calcium 8.9 mg/dl (8.6-10.3); Creatinine Clr Calc Pharmacy 106.7 ml/min; Est GFR (African American) 115.6 ml/min; Est GFR (Non-African American) 99.7 ml/min; Potassium 4.3 mmol/L (3.5-5.1)
[2023-05-23] MEDS: VANCOMYCIN HCL 1,250 MG in SODIUM CHLORIDE 0.9% 250 ML IV SCH ×2 (08:08→19:47)
[2023-05-23] MEDS: CEFEPIME 2,000 MG in SYRINGE 0 ML IV SCH ×2 (08:08→17:33)
[2023-05-23] MEDS: LOSARTAN POTASSIUM 25 MG TAB PO SCH (08:53)
[2023-05-23] MEDS ORDERED: ePHEDrine sulfate 50 MG/ML AMP IV PRN (13:05)
[2023-05-23] MEDS ORDERED: ONDANSETRON INJ 2 MG/ML 2 ML VIAL IV PRN (13:05)
[2023-05-23] MEDS ORDERED: ATROPINE SULFATE 0.1 MG/ML 10ML SYR IV PRN (13:05)
[2023-05-23] MEDS ORDERED: fentaNYL citrate PF 100 MCG/2 ML VIAL IV PRN (13:05)
--- NOTE | 2023-05-23 13:05 | Anesthesiology Consultation ---
Date of Service May 23, 2023 Assessment & Plan (1) Encounter for pre-operative examination: Chart Review Chart Review: Acceptable Risk for Surgery and Patient NOT seen in Pre Admission Testing Consults Requested none History Surgery Operation Date: 05/23/23 12:55 Proposed Procedures p Left Middle Finger Incision and Drainage and Amputation - Rob Dorman M.D. Height/Weight Height: 5 ft 8 in Weight: 80.1 kg Allergies Allergy/AdvReac Type Severity Reaction Status Date / Time No Known Allergies Allergy Unverified 05/17/23 14:20 Medications Home Medications Medication Instructions Recorded Confirmed Last Taken aspirin 81 mg tablet,delayed 81 mg PO QAM 05/17/23 05/17/23 05/17/23 release cefadroxil 500 mg capsule 500 mg PO BID 05/17/23 05/17/23 Unknown Active Medications Generic Name Dose Route Start Last Admin Trade Name Freq PRN Reason Stop Dose Admin Enoxaparin Sodium 40 mg 05/18/23 13:30 05/22/23 08:14 Enoxaparin Inj 40 Mg/0.4 Ml Syr SQ 06/17/23 13:29 Not Given QAM DANYELL Cefepime HCl 2,000 mg/ Syringe 20 mls @ 5 mls/min 05/17/23 16:00 05/23/23 08:08 IV 06/28/23 15:59 5 mls/min Q8H DANEYLL Administration Protocol Vancomycin HCl 1,250 mg/ 275 mls @ 200 mls/hr 05/19/23 20:00 05/23/23 09:59 Sodium Chloride IV 06/30/23 19:59 Infused Q12H DANYELL Infusion Losartan Potassium 25 mg 05/21/23 16:45 05/23/23 08:53 Losartan Potassium 25 Mg Tab PO 06/20/23 16:44 25 mg QAM DANYELL Administration NPO Date Last Intake of Fluids: 05/22/23 Time Last Intake of Fluids: 23:59 Date Last Intake of Solids: 05/22/23 Time Last Intake of Solids: 17:00 Past Medical History Medical History History of intracranial hemorrhage History of traumatic brain injury HTN (hypertension) Tobacco use Past Surgical History Surgical History History of ankle surgery Social History Smoking Status: Never smoker Do You Dip or Chew Tobacco: Yes (1 can every 3 days) Hx Alcohol Use: No Hx Substance Use: No Physical Exam Vital Signs Last Vital Signs Temp 97.5 F L 05/23/23 12:29 Pulse 74 05/23/23 12:29 Resp 20 05/23/23 12:29 BP 140/85 05/23/23 12:29 Pulse Ox 96 05/23/23 12:29 O2 Del Method Room Air 05/23/23 12:29 Testing Laboratory Results 05/22/23 06:26 05/23/23 05:48
--- NOTE | 2023-05-23 13:47 | History & Physical Bridge Note ---
Date of Service May 23, 2023 History & Physical Bridge Note I have examined the patient, reviewed the History & Physical and in the interval since the performance of the History & Physical I have noted the following changes of clinical significance: no changes noted
[2023-05-23] MEDS ORDERED: BUPIVACAINE 0.5 % 5 MG/1 ML MPF 30ML VIAL ONE (14:28)
[2023-05-23] MEDS ORDERED: LIDOCAINE 1% LOCAL 20 ML VIAL ONE (14:28)
--- NOTE | 2023-05-23 15:30 | Hospitalist Progress Note ---
Date of Service May 23, 2023 Assessment & Plan (1) Finger osteomyelitis, left: (2) Cellulitis: Plan: Patient is 78 y/o M with PMH HTN, h/o TBI and intracranial hemorrhage in 10/2022 presented to ER with c/o left 3rd finger swelling x 2 weeks after reported injur y from dog leash. Outpatient trial of cefadroxil with minimal improvement. Left 3rd Finger Osteomyelitis MRI - Osteomyelitis involving the middle and distal phalanges of the left middle finger as described above near complete bony destruction of the distal phalanx. On Vanco and cefepime (day 7) Plan for or today (3) Hyponatremia: Plan: Resolved with IV fluids Monitor (4) HTN (hypertension): Plan: H/O HTN. No longer on medications. Previously on lisinopril/HCTZ BP slightly elevated on presentation Blood pressure remains controlled (5) History of traumatic brain injury: (6) History of intracranial hemorrhage: Plan: H/O fall and intracranial hemorrhage, TBI, C2 fracture in 10/2022. Hospitalized at [facility]. (7) Tobacco use: Plan: Chewing tobacco Denies nicotine patch currently DVT PROPHYLAXIS SQ Lovenox on hold Please note the above document was generated using voice recognition software. It may contain grammatical, syntax or spelling errors. Any formal questions or concerns about the content, text or information contained within the body of this dictation should be directly addressed to the provider for clarification Admission and Anticipated Discharge Date Admission Date: May 17, 2023 Subjective Patient seen and examined at bedside. He is comfortably sitting up on the bed; not in distress. Afebrile and hemodynamically stable. Review of Systems Review of Systems: All systems reviewed & are unremarkable except as noted in Subjective Physical Exam Constitutional: WD/WN, vitals as above no acute distress Respiratory: normal respiratory effort, lungs clear to auscultation Cardiovascular: Rate/Rhythm: regular rate and regular rhythm Vessels: normal peripheral pulses Extremities: no edema Gastrointestinal (Abdomen): Percussion/Palpation: abdomen soft; abdomen nontender Musculoskeletal: Left third finger swelling, erythema present., scab/eschar present on the tip of the finger, CSM checks intact Skin: no rashes, warm and dry Neurologic: no focal motor deficits Psychiatric: A+Ox3, euthymic affect Results & Data Results & Data Vital Signs (Past 12 Hours) Vital Signs Temp Pulse Resp BP Pulse Ox O2 Del Method 05/23/23 12:29 36.4 C L 74 20 140/85 96 Room Air 05/23/23 08:00 36.4 C L 66 16 123/68 98 Room Air 05/23/23 07:23 Room Air Laboratory Results Laboratory Results WBC 5.34 K/ul (4.8-10.8) 05/22/23 06:26 RBC 5.84 M/uL (4.70-6.10) 05/22/23 06:26 Hgb 16.3 g/dl (14.0-18.0) 05/22/23 06:26 Hct 50.1 % (42.0-52.0) 05/22/23 06:26 MCV 85.8 fL (80.0-100.0) 05/22/23 06:26 MCH 27.9 pg (25.0-34.0) 05/22/23 06:26 MCHC 32.5 g/dL (32.0-36.0) 05/22/23 06:26 RDW Std Deviation 48.6 fL (36.4-46.3) H 05/22/23 06:26 RDW Coeff of Sylvia 15.6 % (11.5-14.5) H 05/22/23 06:26 Plt Count 249 K/uL (130-400) 05/22/23 06:26 MPV 9.5 fL (9.4-12.4) 05/22/23 06:26 Immature Gran % (Auto) 0.3 % 05/17/23 13:00 Neut % (Auto) 73.4 % 05/17/23 13:00 Lymph % (Auto) 14.2 % 05/17/23 13:00 [place] % (Auto) 10.3 % 05/17/23 13:00 Eos % (Auto) 1.2 % 05/17/23 13:00 Baso % (Auto) 0.6 % 05/17/23 13:00 Neut # (Auto) 4.76 K/uL (1.40-6.50) 05/17/23 13:00 Lymph # (Auto) 0.92 K/uL (1.2-3.4) L 05/17/23 13:00 [place] # (Auto) 0.67 K/uL (0.11-0.59) H 05/17/23 13:00 Eos # (Auto) 0.08 K/uL (0-0.50) 05/17/23 13:00 Baso # (Auto) 0.04 K/uL (0-0.2) 05/17/23 13:00 Immature Gran # (Auto) 0.02 K/uL (0.01-0.20) 05/17/23 13:00 Sodium 135 mmol/L (136-145) L 05/23/23 05:48 Potassium 4.3 mmol/L (3.5-5.1) 05/23/23 05:48 Chloride 105 mmol/L (98-107) 05/23/23 05:48 Carbon Dioxide 25 mmol/L (21-32) 05/23/23 05:48 Anion Gap 5 (3-11) 05/23/23 05:48 BUN 15 mg/dl (6-23) 05/23/23 05:48 Creatinine 0.57 mg/dl (0.6-1.4) L 05/23/23 05:48 Est Cr Clr Drug Dosing 106.7 ml/min 05/23/23 05:48 Est GFR ( Amer) 115.6 ml/min 05/23/23 05:48 Est GFR (Non-Af Amer) 99.7 ml/min 05/23/23 05:48 BUN/Creatinine Ratio 26.3 (10-20) H 05/23/23 05:48 Glucose 84 mg/dl (70-99(Fasting)) 05/23/23 05:48 Calcium 8.9 mg/dl (8.6-10.3) 05/23/23 05:48 Magnesium 2.2 mg/dl (1.7-2.4) 05/19/23 05:33 Total Bilirubin 0.7 mg/dl (0.2-1.0) 05/17/23 13:00 AST 18 U/L (13-39) 05/17/23 13:00 ALT 14 U/L (7-52) 05/17/23 13:00 Alkaline Phosphatase 93 U/L (34-104) 05/17/23 13:00 Total Protein 7.4 gm/dl (6.0-8.3) 05/17/23 13:00 Albumin 3.6 gm/dl (3.4-5.0) 05/17/23 13:00 Globulin 3.8 gm/dl (2.5-4.0) 05/17/23 13:00 Albumin/Globulin Ratio 0.9 (0.9-2) 05/17/23 13:00 Random Vancomycin 17.2 mcg/ml (10-20) 05/21/23 05:29 Impressions Finger X-Ray 05/17/23 12:47 XR finger(s) LT min 2V CLINICAL HISTORY: Left third finger injury with pain. COMPARISON STUDY: None. FINDINGS: Diffuse soft tissue swelling within the left third digit most pronounc ed distally. Soft tissue irregularity/laceration at the distal left third finger. Near complete bony destruction of the left third finger distal phalanx. Therefore, this is consistent with an osteomyelitis. IMPRESSION: Near complete bony destruction of the left third finger distal phalanx consistent with an osteomyelitis. ACT 112: Negative or not required by law. Electronically signed by: Carlos Roman M.D. 05/17/2023 1:17 PM Chest X-Ray 05/17/23 15:48 XR chest 1V portable HISTORY: pre-op COMPARISON: None. FINDINGS: No pneumothorax. No pleural effusions. The cardiac silhouette is mildly enlarged. No focal lung consolidations to suggest a pneumonia. There is mild diffuse interstitial thickening. This could be chronic or represent mild congestive change. Degenerative changes noted within the shoulders. No acute fractures. IMPRESSION: 1. Mild cardiomegaly. 2. Mild diffuse interstitial thickening. This could be chronic or represent developing congestive change. ACT 112: Negative or not required by law. Electronically signed by: Carlos Roman M.D. 05/17/2023 4:13 PM Hand MRI 05/18/23 08:01 MR hand LT wo/w con HISTORY: third finger osteomyelitis TECHNIQUE: Multiplanar multisequence MRI of the left hand was performed both before and after the intravenous administration of 8 cc of Gadavist contrast. COMPARISON STUDY: Left middle finger radiograph 05/17/2023. FINDINGS: There is again noted near complete bony destruction the distal phalanx of the left middle finger consistent with osteomyelitis. There is T2 hyperintense, T1 hypointense marrow signal within the mid to distal left third finger middle phalanx. This also demonstrates enhancement. Therefore, this is consistent with an additional site of osteomyelitis. No abnormal marrow signal or enhancement within the proximal phalanx of the middle finger. The remaining osseous structures demonstrate a normal marrow signal intensity. Degenerative changes within the interphalangeal joints again noted. Soft tissue swelling/edema throughout the middle finger associated enhancement consistent with a cellulitis. Probable dorsal skin ulceration seen at the distal finger. No loculated fluid collections to suggest an abscess. No acute fracture or dislocation. IMPRESSION: 1. Osteomyelitis involving the middle and distal phalanges of the left middle finger as described above near complete bony destruction of the distal phalanx. 2. No loculated fluid collections to suggest an abscess. 3. No additional sites of osteomyelitis within the left hand. ACT 112: Negative or not required by law. Electronically signed by: Carlos Roman M.D. 05/18/2023 2:49 PM
[2023-05-23] MEDS ORDERED: PROPOFOL IV EMULSION 10 MG/ML 20 ML VIAL IV ONE ×2 (15:40→15:41)
[2023-05-23] MEDS ORDERED: PHENYLEPHRINE 100MCG/ML 5ML SYR ONE (15:40)
--- NOTE | 2023-05-23 16:27 | Anesthesiology Progress Note ---
Date of Service May 23, 2023 Anesthesia Post Procedure Vital Signs Vital Signs: Temp Pulse Resp BP Pulse Ox O2 Del Method 05/23/23 12:29 97.5 F L 74 20 140/85 96 Room Air 05/23/23 08:00 97.5 F L 66 16 123/68 98 Room Air 05/23/23 07:23 Room Air 05/22/23 23:14 97.5 F L 73 18 136/85 94 Room Air Transfer of Care Handoff Completed per policy Notes Mental Status: alert / awake / arousable and participated in evaluation Patient Amnestic to Procedure: Yes Nausea / Vomiting: adequately controlled Pain: adequately controlled Airway Patency, RR, SpO2: stable & adequate BP & HR: stable & adequate Hydration State: stable & adequate Anesthetic Complications: no major complications apparent and Pt Satisfied with anesthetic care
--- NOTE | 2023-05-23 16:30 | Operative Report ---
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 Surgeon Rob Dorman MD Card Cutter Helper Rich Horvath PA-C Estimated Blood Loss 15 Findings Consistent with Post-Op Diagnosis Specimens Swab for Gram stain, aerobic culture, anaerobic culture Drains None Anesthesia Type MAC Complications none Disposition Disposition: Recovery Room Indications Mr. Espinal is a 78-year-old male with an obvious left middle finger infection. History, clinical exam, and imaging were consistent with the above diagnosis. Risks, benefits, and alternatives of surgery were explained in detail. The patient understood all this and wished to proceed. Description of Procedure Patient was identified in the preoperative holding area. Operative extremity was marked. Patient was then brought back to the operating room, and MAC anesthesia was induced without complication. Prophylactic antibiotics were held until intraoperative cultures were obtained. Digital blockade was performed with a 50/50 mixture of 1% lidocaine and 0.5% Marcaine without epinephrine. Tourniquet was placed on the left forearm. Arm was then prepped and draped in a standard sterile fashion using betadine prep due to the open wound. The forearm was then exsanguinated with an Esmarch starting proximal to the zone of infection, and the tourniquet was inflated. Wound was then inspected. There is a grossly necrotic wound involving the distal fingertip. The entire nailbed appeared necrotic. There was some gross purulence extending through this distal wound. There was swelling and skin necrosis extending proximally to about the level of the DIP joint. I planned out a fishmouth incision at the level of the DIP joint, but proximal to the lev el of the necrotic skin and nailbed. I then incised full-thickness skin flaps and dissected down to the extensor tendon dorsally, and flexor tendon volarly. The entire distal phalanx was noted to be nearly completely destroyed and quite soft, consistent with chronic osteomyelitis. The distal aspect of the middle phalanx was also extremely soft, and I was able to cut through the bone just with a knife. Cultures were obtained for Gram stain, aerobic culture, and anaerobic culture. There is no gross purulent fluid in the area, but all of the soft tissues appeared thickened and inflamed, consistent with a chronic infection. The distal necrotic fingertip was excised in total. I then evaluated the middle phalangeal bone to determine an appropriate amputation level. Rongeur was used to debride back the bone back to where it seemed more structurally intact and of normal density. This was distal to the FDS insertions into the middle phalanx. The surrounding soft tissues appeared viable to heal around this amputation level. I used a rongeur and rasp to smooth the distal edges of the residual middle phalanx to prevent surrounding soft tissue irritation. I pulled the FDP tendon as distal as possible out of the wound, transected the tendon, and allowed it to retract into the hand. Extensor tendon was also resected back proximal to the level of the bone amputation. I then dissected out the ulnar and radial digital nerves of the fingertip, and excised them about a centimeter proximal to the amputation level to prevent painful neuroma formation in the residual fingertip. All necrotic skin, subcutaneous tissue, and deep tissue was aggressively sharply debrided with knife, scissors, curette, and rongeur. The wound was then copiously irrigated with sterile saline. Tourniquet was let down, and hemostasis was achieved with bipolar electrocautery. Skin was closed with 4-0 Prolene suture. Sterile dressings were applied with Xeroform, sterile cling wrap, and Coban. The drapes were removed, the patient was awakened from anesthesia and taken to the Post Anesthesia Care Unit in stable condition. There were no immediate complications from the procedure. I was present and scrubbed for the entire procedure. Due to the complex nature of the procedure, the entire surgery was performed with the operational assistance of Rich Horvath PA-C. The assistant therapy aide, under direct supervision, was involved in the performance of all aspects of the surgical procedure including hemostasis, tissue incision and retraction, instrument management, patient positioning, and wound closure. I attest to the content of the Intraoperative Record and any orders documented therein. Any exceptions are noted below.
[2023-05-24] MEDS: CEFEPIME 2,000 MG in SYRINGE 0 ML IV SCH ×3 (00:08→16:12)
[2023-05-24] MEDS ORDERED: [UNRECOGNIZED DRUG - REMARK] ONE (07:30)
--- NOTE | 2023-05-24 07:50 | Orthopedic Progress Note ---
Date of Service May 24, 2023 Assessment & Plan (1) Finger osteomyelitis, left: Plan: 78 yo male stable POD #1 s/p partial amputation left middle finger 1. Med management 2. DVT prophylaxis- SCDs 3. PT/OT 4. D/C planning- d/c when stable per medicine, ortho d/c instructions in discharge Admission and Anticipated Discharge Date Admission Date: May 17, 2023 Subjective Pt sitting bedside, denies complaints, pain controlled, states "when am I getting out of here?" Physical Exam Physical Exam: Dressing C/D/I Results & Data Vital Signs (Past 12 Hours) Vital Signs Temp Pulse Resp BP Pulse Ox O2 Del Method 05/24/23 06:59 36.6 C 62 18 138/71 98 Room Air 05/24/23 02:12 36.4 C L 70 18 130/68 96 Room Air 05/23/23 22:21 36.4 C L 71 18 116/62 99 Room Air 05/23/23 19:57 36.3 C L 79 17 119/58 L 98 Room Air
[2023-05-24] MEDS: VANCOMYCIN HCL 1,250 MG in SODIUM CHLORIDE 0.9% 250 ML IV SCH ×2 (08:57→19:46)
[2023-05-24] MEDS: LOSARTAN POTASSIUM 25 MG TAB PO SCH (09:02)
--- NOTE | 2023-05-24 11:15 | Pharmacy Report ---
Pharmacy PK ABX Note - Date of Service May 24, 2023 - Assessment and Plan Assessment 05/24: * Vancomycin level obtained this morning to confirm adequate dosing. * Level = 19.7 mcg/ml equates to AUC = 494 mg/L.hr at steady state which is within target AUC/BEATRIZ range and only 10% risk of nephrotoxicity. * Renal function remains stable; CrCl above 100 ml/min yesterday. 05/21 * Vancomycin level obtained this morning to ensure that current dosing regimen remains appropriate. * Level: 17.2 mcg/mL -- indicating adequate vanc dosing * Renal function remains stable. 05/19 * 78 year old M receiving vancomycin and cefepime for treatment of bone and joint infection. Renal function stable. No culture data. * Day #3 of antimicrobial therapy. Plan Vancomycin * Random level this morning = 19.7 mcg/mL * Regimen is predicted to achieve target AUC/BEATRIZ of 400-600 mg/L.hr * Continue vanc 1250 mg IV every 12 hours * No further levels have been ordered at this time. If patient remains on vanc therapy, will consider the need for additional monitoring in 3-5 days, or sooner if any acute changes in pt status or renal function. Pharmacy will continue to follow and will adjust dose/frequency as necessary. Thank you. Pharmacy has transitioned to AUC monitoring for vancomycin. AUC/BEATRIZ is the preferred PK/PD target and is associated with decreased risk of nephrotoxicity compared to traditional trough targets.
--- NOTE | 2023-05-24 13:47 | Hospitalist Progress Note ---
Date of Service May 24, 2023 Assessment & Plan (1) Finger osteomyelitis, left: (2) Cellulitis: Plan: Patient is 78 y/o M with PMH HTN, h/o TBI and intracranial hemorrhage in 10/2022 presented to ER with c/o left 3rd finger swelling x 2 weeks after reported injur y from dog leash. Outpatient trial of cefadroxil with minimal improvement. Left 3rd Finger Osteomyelitis MRI - Osteomyelitis involving the middle and distal phalanges of the left middle finger as described above near complete bony destruction of the distal phalanx. Underwent left middle finger irrigation and debridement and amputation through middle phalangeal level on May 23, 2023. Discussed with surgeon; there is some residual osteomyelitis and middle phalanx. Recommended prolonged course of IV antibiotics. Gram stain and culture intraoperatively pending. Infectious disease consulted. Continue on cefepime and vancomycin. Patient reports preference of oral antibiotic if possible at discharge. (3) Hyponatremia: Plan: Resolved with IV fluids Monitor (4) HTN (hypertension): Plan: H/O HTN. No longer on medications. Previously on lisinopril/HCTZ BP slightly elevated on presentation Started on losartan during the hospitalization. Blood pressure appears to be well controlled. (5) History of traumatic brain injury: (6) History of intracranial hemorrhage: Plan: H/O fall and intracranial hemorrhage, TBI, C2 fracture in 10/2022. Hospitalized at [facility]. (7) Tobacco use: Plan: Chewing tobacco Denies nicotine patch currently DVT PROPHYLAXIS SQ Lovenox PT OT ordered Please note the above document was generated using voice recognition software. It may contain grammatical, syntax or spelling errors. Any formal questions or concerns about the content, text or information contained within the body of this dictation should be directly addressed to the provider for clarification Admission and Anticipated Discharge Date Admission Date: May 17, 2023 Subjective Patient seen and examined at bedside. He is comfortable lying on the bed; not in any distress. Afebrile and hemodynamically stable. Review of Systems Review of Systems: All systems reviewed & are unremarkable except as noted in Subjective Physical Exam Physical Exam: Constitutional: WD/WN, vitals as above, NAD, sitting up in bed, pleasant, conversing easily Respiratory: normal respiratory effort, lungs clear to auscultation, no wheeze, rales, rhonchi. Normal insp/exp effort, no accessory muscle use Cardiovascular: RRR, no murmur, no edema Vessels: no JVD or carotid bruit Chest: normal inspection of chest Abdomen: normal bowel sounds, soft, nontender, no hepatosplenomegaly Musculoskeletal: Dressing clean dry and intact in third finger of left hand. Skin: no rashes, warm and dry normal turgor Neurologic: PERRL, EOMI, accommodation nl, no face palsy, no dysarthria CN's II- XI intact bilaterally and moves all extremities Psychiatric: A+Ox3, euthymic affect Results & Data Results & Data Vital Signs (Past 12 Hours) Vital Signs Temp Pulse Resp BP Pulse Ox O2 Del Method 05/24/23 06:59 36.6 C 62 18 138/71 98 Room Air 05/24/23 02:12 36.4 C L 70 18 130/68 96 Room Air Laboratory Results Laboratory Results WBC 5.34 K/ul (4.8-10.8) 05/22/23 06:26 RBC 5.84 M/uL (4.70-6.10) 05/22/23 06:26 Hgb 16.3 g/dl (14.0-18.0) 05/22/23 06:26 Hct 50.1 % (42.0-52.0) 05/22/23 06:26 MCV 85.8 fL (80.0-100.0) 05/22/23 06:26 MCH 27.9 pg (25.0-34.0) 05/22/23 06:26 MCHC 32.5 g/dL (32.0-36.0) 05/22/23 06:26 RDW Std Deviation 48.6 fL (36.4-46.3) H 05/22/23 06:26 RDW Coeff of Sylvia 15.6 % (11.5-14.5) H 05/22/23 06:26 Plt Count 249 K/uL (130-400) 05/22/23 06:26 MPV 9.5 fL (9.4-12.4) 05/22/23 06:26 Immature Gran % (Auto) 0.3 % 05/17/23 13:00 Neut % (Auto) 73.4 % 05/17/23 13:00 Lymph % (Auto) 14.2 % 05/17/23 13:00 Gallia % (Auto) 10.3 % 05/17/23 13:00 Eos % (Auto) 1.2 % 05/17/23 13:00 Baso % (Auto) 0.6 % 05/17/23 13:00 Neut # (Auto) 4.76 K/uL (1.40-6.50) 05/17/23 13:00 Lymph # (Auto) 0.92 K/uL (1.2-3.4) L 05/17/23 13:00 Gallia # (Auto) 0.67 K/uL (0.11-0.59) H 05/17/23 13:00 Eos # (Auto) 0.08 K/uL (0-0.50) 05/17/23 13:00 Baso # (Auto) 0.04 K/uL (0-0.2) 05/17/23 13:00 Immature Gran # (Auto) 0.02 K/uL (0.01-0.20) 05/17/23 13:00 Sodium 135 mmol/L (136-145) L 05/23/23 05:48 Potassium 4.3 mmol/L (3.5-5.1) 05/23/23 05:48 Chloride 105 mmol/L (98-107) 05/23/23 05:48 Carbon Dioxide 25 mmol/L (21-32) 05/23/23 05:48 Anion Gap 5 (3-11) 05/23/23 05:48 BUN 15 mg/dl (6-23) 05/23/23 05:48 Creatinine 0.57 mg/dl (0.6-1.4) L 05/23/23 05:48 Est Cr Clr Drug Dosing 106.7 ml/min 05/23/23 05:48 Est GFR ( Amer) 115.6 ml/min 05/23/23 05:48 Est GFR (Non-Af Amer) 99.7 ml/min 05/23/23 05:48 BUN/Creatinine Ratio 26.3 (10-20) H 05/23/23 05:48 Glucose 84 mg/dl (70-99(Fasting)) 05/23/23 05:48 Calcium 8.9 mg/dl (8.6-10.3) 05/23/23 05:48 Magnesium 2.2 mg/dl (1.7-2.4) 05/19/23 05:33 Total Bilirubin 0.7 mg/dl (0.2-1.0) 05/17/23 13:00 AST 18 U/L (13-39) 05/17/23 13:00 ALT 14 U/L (7-52) 05/17/23 13:00 Alkaline Phosphatase 93 U/L (34-104) 05/17/23 13:00 Total Protein 7.4 gm/dl (6.0-8.3) 05/17/23 13:00 Albumin 3.6 gm/dl (3.4-5.0) 05/17/23 13:00 Globulin 3.8 gm/dl (2.5-4.0) 05/17/23 13:00 Albumin/Globulin Ratio 0.9 (0.9-2) 05/17/23 13:00 Random Vancomycin 19.7 mcg/ml (10-20) 05/24/23 05:29 Impressions Finger X-Ray 05/17/23 12:47 XR finger(s) LT min 2V CLINICAL HISTORY: Left third finger injury with pain. COMPARISON STUDY: None. FINDINGS: Diffuse soft tissue swelling within the left third digit most pronounced distally. Soft tissue irregularity/laceration at the distal left third finger. Near complete bony destruction of the left third finger distal phalanx. Therefore, this is consistent with an osteomyelitis. IMPRESSION: Near complete bony destruction of the left third finger distal phalanx consistent with an osteomyelitis. ACT 112: Negative or not required by law. Electronically signed by: Carlos Roman M.D. 05/17/2023 1:17 PM Chest X-Ray 05/17/23 15:48 XR chest 1V portable HISTORY: pre-op COMPARISON: None. FINDINGS: No pneumothorax. No pleural effusions. The cardiac silhouette is mildly enlarged. No focal lung consolidations to suggest a pneumonia. There is mild diffuse interstitial thickening. This could be chronic or represent mild congestive change. Degenerative changes noted within the shoulders. No acute fractures. IMPRESSION: 1. Mild cardiomegaly. 2. Mild diffuse interstitial thickening. This could be chronic or represent developing congestive change. ACT 112: Negative or not required by law. Electronically signed by: Carlos Roman M.D. 05/17/2023 4:13 PM Hand MRI 05/18/23 08:01 MR hand LT wo/w con HISTORY: third finger osteomyelitis TECHNIQUE: Multiplanar multisequence MRI of the left hand was performed both before and after the intravenous administration of 8 cc of Gadavist contrast. COMPARISON STUDY: Left middle finger radiograph 05/17/2023. FINDINGS: There is again noted near complete bony destruction the distal phalanx of the left middle finger consistent with osteomyelitis. There is T2 hyperintense, T1 hypointense marrow signal within the mid to distal left third finger middle phalanx. This also demonstrates enhancement. Therefore, this is consistent with an additional site of osteomyelitis. No abnormal marrow signal or enhancement within the proximal phalanx of the middle finger. The remaining osseous structures demonstrate a normal marrow signal intensity. Degenerative changes within the interphalangeal joints again noted. Soft tissue swelling/edema throughout the middle finger associated enhancement consistent with a cellulitis. Probable dorsal skin ulceration seen at the distal finger. No loculated fluid collections to suggest an abscess. No acute fracture or dislocation. IMPRESSION: 1. Osteomyelitis involving the middle and distal phalanges of the left middle finger as described above near complete bony destruction of the distal phalanx. 2. No loculated fluid collections to suggest an abscess. 3. No additional sites of osteomyelitis within the left hand. ACT 112: Negative or not required by law. Electronically signed by: Carlso Roman M.D. 05/18/2023 2:49 PM
[2023-05-25] MEDS: CEFEPIME 2,000 MG in SYRINGE 0 ML IV SCH ×3 (00:45→16:23)
--- NOTE | 2023-05-25 06:48 | Orthopedic Progress Note ---
Date of Service May 25, 2023 Assessment & Plan (1) Finger osteomyelitis, left: Plan: 78 yo male stable POD #2 s/p partial amputation left middle finger 1. Med management 2. DVT prophylaxis- SCDs 3. PT/OT 4. The dressing was changed today. Adaptic, gauze, gauze wrap were used for the dressing. I encouraged ROM of the PIP joint. 5. D/C planning- d/c when stable per medicine, ortho d/c instructions in discharge. Orthopedics to sign off at this time. The patient will follow-up as an outpatient approximately 10-14 days postop. Admission and Anticipated Discharge Date Admission Date: May 17, 2023 Subjective Patient is doing well today. He was hoping to be discharged last evening but awaiting ID input on antibiotics. No complaints with the left hand today. Physical Exam Constitutional: WD/WN, vitals as above no acute distress Musculoskeletal: Extremities: + hand abnormality Left (Left middle finger: Well approximated amputation flap. No erythema or drainage. Moderate swelling but appears stable or improving. Prior to removal, the dressing was C/D/I.) Neurologic: normal touch/pain/proprioception Psychiatric: A+Ox3, euthymic affect Speech: normal rate/rhythm/volume of speech Results & Data Vital Signs (Past 12 Hours) Vital Signs Temp Pulse Resp BP Pulse Ox O2 Del Method 05/25/23 06:10 36.5 C 63 16 141/73 H 97 Room Air 05/24/23 22:12 36.9 C 80 16 121/83 97 Room Air
[2023-05-25] MEDS: VANCOMYCIN HCL 1,250 MG in SODIUM CHLORIDE 0.9% 250 ML IV SCH ×2 (07:49→19:54)
[2023-05-25] MEDS: LOSARTAN POTASSIUM 25 MG TAB PO SCH (07:49)
[2023-05-25] MEDS: ENOXAPARIN INJ 40 MG/0.4 ML SYR SQ SCH (07:49)
[2023-05-25 09:35] LABS: Basophils # (auto) 0.06 K/uL (0-0.2); Basophils % (auto) 1.3 %; Eosinophils # (auto) 0.18 K/uL (0-0.50); Eosinophils % (auto) 3.8 %; Hematocrit (blood only) 47.1 % (42.0-52.0); Hemoglobin 15.5 g/dl (14.0-18.0); Immature Granulocytes # (auto) 0.01 K/uL (0.01-0.20); Immature Granulocytes % (auto) 0.2 %; Lymphocytes # (auto) 1.12 K/uL (1.2-3.4); Lymphocytes % (auto) 23.5 %; Mean Corpuscular Hemoglobin 28.2 pg (25.0-34.0); Mean Corpuscular Hgb Conc 32.9 g/dL (32.0-36.0); Mean Corpuscular Volume 85.8 fL (80.0-100.0); Mean Platelet Volume 9.8 fL (9.4-12.4); Monocytes # (auto) 0.53 K/uL (0.11-0.59); Monocytes % (auto) 11.1 %; Neutrophils # (auto) 2.86 K/uL (1.40-6.50); Neutrophils % (auto) 60.1 %; Platelet Count 195 K/uL (130-400); RDW Coefficient of Variation 15.8 % (11.5-14.5); RDW Standard Deviation 49.3 fL (36.4-46.3); Red Blood Count 5.49 M/uL (4.70-6.10); White Blood Count 4.76 K/ul (4.8-10.8)
[2023-05-25 09:57] LABS: BUN Creatinine Ratio 22.6 (10-20); Calcium 8.9 mg/dl (8.6-10.3); Creatinine Clr Calc Pharmacy 98.1 ml/min; Est GFR (African American) 111.7 ml/min; Est GFR (Non-African American) 96.4 ml/min; Potassium 4.2 mmol/L (3.5-5.1)
--- NOTE | 2023-05-25 13:01 | Hospitalist Progress Note ---
Date of Service May 25, 2023 Assessment & Plan (1) Finger osteomyelitis, left: (2) Cellulitis: Plan: Patient is 78 y/o M with PMH HTN, h/o TBI and intracranial hemorrhage in 10/2022 presented to ER with c/o left 3rd finger swelling x 2 weeks after reported injur y from dog leash. Outpatient trial of cefadroxil with minimal improvement. Left 3rd Finger Osteomyelitis MRI - Osteomyelitis involving the middle and distal phalanges of the left middle finger as described above near complete bony destruction of the distal phalanx. Underwent left middle finger irrigation and debridement and amputation through middle phalangeal level on May 23, 2023. Discussed with surgeon; there is some residual osteomyelitis and middle phalanx. Recommended prolonged course of IV antibiotics. Gram stain and culture intraoperatively no growth till date Infectious disease consulted. Awaiting final culture. Continue on cefepime and vancomycin. (3) Hyponatremia: Plan: Resolved with IV fluids Monitor (4) HTN (hypertension): Plan: H/O HTN. No longer on medications. Previously on lisinopril/HCTZ BP slightly elevated on presentation Started on losartan during the hospitalization. Blood pressure appears to be well controlled. (5) History of traumatic brain injury: (6) History of intracranial hemorrhage: Plan: H/O fall and intracranial hemorrhage, TBI, C2 fracture in 10/2022. Hospitalized at [facility]. (7) Tobacco use: Plan: Chewing tobacco Denies nicotine patch currently DVT PROPHYLAXIS SQ Lovenox PT OT ordered Please note the above document was generated using voice recognition software. It may contain grammatical, syntax or spelling errors. Any formal questions or concerns about the content, text or information contained within the body of this dictation should be directly addressed to the provider for clarification Admission and Anticipated Discharge Date Admission Date: May 17, 2023 Subjective Patient seen and examined at bedside. He is sitting up at the side of the bed; not in distress. Afebrile and vital stable. Review of Systems Review of Systems: All systems reviewed & are unremarkable except as noted in Subjective Physical Exam Physical Exam: Constitutional: WD/WN, vitals as above, NAD, sitting up in bed, pleasant, conversing easily Respiratory: normal respiratory effort, lungs clear to auscultation, no wheeze, rales, rhonchi. Normal insp/exp effort, no accessory muscle use Cardiovascular: RRR, no murmur, no edema Vessels: no JVD or carotid bruit Chest: normal inspection of chest Abdomen: normal bowel sounds, soft, nontender, no hepatosplenomegaly Musculoskeletal: Dressing clean dry and intact in third finger of left hand. Skin: no rashes, warm and dry normal turgor Neurologic: PERRL, EOMI, accommodation nl, no face palsy, no dysarthria CN's II- XI intact bilaterally and moves all extremities Psychiatric: A+Ox3, euthymic affect Results & Data Results & Data Vital Signs (Past 12 Hours) Vital Signs Temp Pulse Resp BP Pulse Ox O2 Del Method 05/25/23 06:10 36.5 C 63 16 141/73 H 97 Room Air Laboratory Results Laboratory Results WBC 4.76 K/ul (4.8-10.8) L 05/25/23 08:56 RBC 5.49 M/uL (4.70-6.10) 05/25/23 08:56 Hgb 15.5 g/dl (14.0-18.0) 05/25/23 08:56 Hct 47.1 % (42.0-52.0) 05/25/23 08:56 MCV 85.8 fL (80.0-100.0) 05/25/23 08:56 MCH 28.2 pg (25.0-34.0) 05/25/23 08:56 MCHC 32.9 g/dL (32.0-36.0) 05/25/23 08:56 RDW Std Deviation 49.3 fL (36.4-46.3) H 05/25/23 08:56 RDW Coeff of Sylvia 15.8 % (11.5-14.5) H 05/25/23 08:56 Plt Count 195 K/uL (130-400) 05/25/23 08:56 MPV 9.8 fL (9.4-12.4) 05/25/23 08:56 Immature Gran % (Auto) 0.2 % 05/25/23 08:56 Neut % (Auto) 60.1 % 05/25/23 08:56 Lymph % (Auto) 23.5 % 05/25/23 08:56 [place] % (Auto) 11.1 % 05/25/23 08:56 Eos % (Auto) 3.8 % 05/25/23 08:56 Baso % (Auto) 1.3 % 05/25/23 08:56 Neut # (Auto) 2.86 K/uL (1.40-6.50) 05/25/23 08:56 Lymph # (Auto) 1.12 K/uL (1.2-3.4) L 05/25/23 08:56 [place] # (Auto) 0.53 K/uL (0.11-0.59) 05/25/23 08:56 Eos # (Auto) 0.18 K/uL (0-0.50) 05/25/23 08:56 Baso # (Auto) 0.06 K/uL (0-0.2) 05/25/23 08:56 Immature Gran # (Auto) 0.01 K/uL (0.01-0.20) 05/25/23 08:56 ESR 43 mm/hr (0-20) H 05/25/23 08:56 Sodium 135 mmol/L (136-145) L 05/25/23 08:56 Potassium 4.2 mmol/L (3.5-5.1) 05/25/23 08:56 Chloride 104 mmol/L (98-107) 05/25/23 08:56 Carbon Dioxide 25 mmol/L (21-32) 05/25/23 08:56 Anion Gap 6 (3-11) 05/25/23 08:56 BUN 14 mg/dl (6-23) 05/25/23 08:56 Creatinine 0.62 mg/dl (0.6-1.4) 05/25/23 08:56 Est Cr Clr Drug Dosing 98.1 ml/min 05/25/23 08:56 Est GFR ( Amer) 111.7 ml/min 05/25/23 08:56 Est GFR (Non-Af Amer) 96.4 ml/min 05/25/23 08:56 BUN/Creatinine Ratio 22.6 (10-20) H 05/25/23 08:56 Glucose 137 mg/dl (70-99(Fasting)) H 05/25/23 08:56 Calcium 8.9 mg/dl (8.6-10.3) 05/25/23 08:56 Magnesium 2.2 mg/dl (1.7-2.4) 05/19/23 05:33 Total Bilirubin 0.7 mg/dl (0.2-1.0) 05/17/23 13:00 AST 18 U/L (13-39) 05/17/23 13:00 ALT 14 U/L (7-52) 05/17/23 13:00 Alkaline Phosphatase 93 U/L (34-104) 05/17/23 13:00 Total Protein 7.4 gm/dl (6.0-8.3) 05/17/23 13:00 Albumin 3.6 gm/dl (3.4-5.0) 05/17/23 13:00 Globulin 3.8 gm/dl (2.5-4.0) 05/17/23 13:00 Albumin/Globulin Ratio 0.9 (0.9-2) 05/17/23 13:00 Random Vancomycin 19.7 mcg/ml (10-20) 05/24/23 05:29 Impressions Finger X-Ray 05/17/23 12:47 XR finger(s) LT min 2V CLINICAL HISTORY: Left third finger injury with pain. COMPARISON STUDY: None. FINDINGS: Diffuse soft tissue swelling within the left third digit most pronounced distally. Soft tissue irregularity/laceration at the distal left third finger. Near complete bony destruction of the left third finger distal phalanx. Therefore, this is consistent with an osteomyelitis. IMPRESSION: Near complete bony destruction of the left third finger distal phalanx consistent with an osteomyelitis. ACT 112: Negative or not required by law. Electronically signed by: Carlos Roman M.D. 05/17/2023 1:17 PM Chest X-Ray 05/17/23 15:48 XR chest 1V portable HISTORY: pre-op COMPARISON: None. FINDINGS: No pneumothorax. No pleural effusions. The cardiac silhouette is mildly enlarged. No focal lung consolidations to suggest a pneumonia. There is mild diffuse interstitial thickening. This could be chronic or represent mild congestive change. Degenerative changes noted within the shoulders. No acute fractures. IMPRESSION: 1. Mild cardiomegaly. 2. Mild diffuse interstitial thickening. This could be chronic or represent developing congestive change. ACT 112: Negative or not required by law. Electronically signed by: Carlos Roman M.D. 05/17/2023 4:13 PM Hand MRI 05/18/23 08:01 MR hand LT wo/w con HISTORY: third finger osteomyelitis TECHNIQUE: Multiplanar multisequence MRI of the left hand was performed both before and after the intravenous administration of 8 cc of Gadavist contrast. COMPARISON STUDY: Left middle finger radiograph 05/17/2023. FINDINGS: There is again noted near complete bony destruction the distal phalanx of the left middle finger consistent with osteomyelitis. There is T2 hyperintense, T1 hypointense marrow signal within the mid to distal left third finger middle phalanx. This also demonstrates enhancement. Therefore, this is consistent with an additional site of osteomyelitis. No abnormal marrow signal or enhancement within the proximal phalanx of the middle finger. The remaining osseous structures demonstrate a normal marrow signal intensity. Degenerative changes within the interphalangeal joints again noted. Soft tissue swelling/edema throughout the middle finger associated enhancement consistent with a cellulitis. Probable dorsal skin ulceration seen at the distal finger. No loculated fluid collections to suggest an abscess. No acute fracture or dislocation. IMPRESSION: 1. Osteomyelitis involving the middle and distal phalanges of the left middle finger as described above near complete bony destruction of the distal phalanx. 2. No loculated fluid collections to suggest an abscess. 3. No additional sites of osteomyelitis within the left hand. ACT 112: Negative or not required by law. Electronically signed by: Carlos Roman M.D. 05/18/2023 2:49 PM
[2023-05-26] MEDS: CEFEPIME 2,000 MG in SYRINGE 0 ML IV SCH ×3 (00:10→15:33)
[2023-05-26] MEDS: ENOXAPARIN INJ 40 MG/0.4 ML SYR SQ SCH (07:50)
[2023-05-26] MEDS: LOSARTAN POTASSIUM 25 MG TAB PO SCH (07:50)
[2023-05-26] MEDS: VANCOMYCIN HCL 1,250 MG in SODIUM CHLORIDE 0.9% 250 ML IV SCH ×2 (07:51→19:52)
--- NOTE | 2023-05-26 14:37 | Hospitalist Progress Note ---
Date of Service May 26, 2023 Assessment & Plan (1) Finger osteomyelitis, left: (2) Cellulitis: Plan: Patient is 78 y/o M with PMH HTN, h/o TBI and intracranial hemorrhage in 10/2022 presented to ER with c/o left 3rd finger swelling x 2 weeks after reported injur y from dog leash. Outpatient trial of cefadroxil with minimal improvement. Left 3rd Finger Osteomyelitis MRI - Osteomyelitis involving the middle and distal phalanges of the left middle finger as described above near complete bony destruction of the distal phalanx. Underwent left middle finger irrigation and debridement and amputation through middle phalangeal level on May 23, 2023. Discussed with surgeon; there is some residual osteomyelitis and middle phalanx. Gram stain and culture intraoperatively no growth till date Infectious disease consulted. Awaiting final culture. Continue on cefepime and vancomycin. (3) Hyponatremia: Plan: Resolved with IV fluids Monitor (4) HTN (hypertension): Plan: H/O HTN. No longer on medications. Previously on lisinopril/HCTZ BP slightly elevated on presentation Started on losartan during the hospitalization. Blood pressure appears to be well controlled. (5) History of traumatic brain injury: (6) History of intracranial hemorrhage: Plan: H/O fall and intracranial hemorrhage, TBI, C2 fracture in 10/2022. Hospitalized at [facility]. (7) Tobacco use: Plan: Chewing tobacco Denies nicotine patch currently DVT PROPHYLAXIS SQ Lovenox PT OT ordered Please note the above document was generated using voice recognition software. It may contain grammatical, syntax or spelling errors. Any formal questions or concerns about the content, text or information contained within the body of this dictation should be directly addressed to the provider for clarification Admission and Anticipated Discharge Date Admission Date: May 17, 2023 Subjective Patient seen and examined at bedside. He is comfortably sitting up on the bed; not in any distress. Review of Systems Review of Systems: All systems reviewed & are unremarkable except as noted in Subjective Physical Exam 2 Physical Exam: Constitutional: WD/WN, vitals as above, NAD, sitting up in bed, pleasant, conversing easily Respiratory: normal respiratory effort, lungs clear to auscultation, no wheeze, rales, rhonchi. Normal insp/exp effort, no accessory muscle use Cardiovascular: RRR, no murmur, no edema Vessels: no JVD or carotid bruit Chest: normal inspection of chest Abdomen: normal bowel sounds, soft, nontender, no hepatosplenomegaly Musculoskeletal: Dressing clean dry and intact in third finger of left hand. Skin: no rashes, warm and dry normal turgor Neurologic: PERRL, EOMI, accommodation nl, no face palsy, no dysarthria CN's II- XI intact bilaterally and moves all extremities Psychiatric: A+Ox3, euthymic affect Constitutional: WD/WN, vitals as above no acute distress Respiratory: normal respiratory effort, lungs clear to auscultation Cardiovascular: Rate/Rhythm: regular rate and regular rhythm Vessels: normal peripheral pulses Extremities: no edema Gastrointestinal (Abdomen): Percussion/Palpation: abdomen soft; abdomen nontender Skin: no rashes, warm and dry Neurologic: no focal motor deficits Psychiatric: A+Ox3, euthymic affect Results & Data Results & Data Vital Signs (Past 12 Hours) Vital Signs Temp Pulse Resp BP Pulse Ox O2 Del Method 05/26/23 07:16 36.4 C L 67 16 153/76 H 97 Room Air Laboratory Results Laboratory Results WBC 4.76 K/ul (4.8-10.8) L 05/25/23 08:56 RBC 5.49 M/uL (4.70-6.10) 05/25/23 08:56 Hgb 15.5 g/dl (14.0-18.0) 05/25/23 08:56 Hct 47.1 % (42.0-52.0) 05/25/23 08:56 MCV 85.8 fL (80.0-100.0) 05/25/23 08:56 MCH 28.2 pg (25.0-34.0) 05/25/23 08:56 MCHC 32.9 g/dL (32.0-36.0) 05/25/23 08:56 RDW Std Deviation 49.3 fL (36.4-46.3) H 05/25/23 08:56 RDW Coeff of Sylvia 15.8 % (11.5-14.5) H 05/25/23 08:56 Plt Count 195 K/uL (130-400) 05/25/23 08:56 MPV 9.8 fL (9.4-12.4) 05/25/23 08:56 Immature Gran % (Auto) 0.2 % 05/25/23 08:56 Neut % (Auto) 60.1 % 05/25/23 08:56 Lymph % (Auto) 23.5 % 05/25/23 08:56 [place] % (Auto) 11.1 % 05/25/23 08:56 Eos % (Auto) 3.8 % 05/25/23 08:56 Baso % (Auto) 1.3 % 05/25/23 08:56 Neut # (Auto) 2.86 K/uL (1.40-6.50) 05/25/23 08:56 Lymph # (Auto) 1.12 K/uL (1.2-3.4) L 05/25/23 08:56 [place] # (Auto) 0.53 K/uL (0.11-0.59) 05/25/23 08:56 Eos # (Auto) 0.18 K/uL (0-0.50) 05/25/23 08:56 Baso # (Auto) 0.06 K/uL (0-0.2) 05/25/23 08:56 Immature Gran # (Auto) 0.01 K/uL (0.01-0.20) 05/25/23 08:56 ESR 43 mm/hr (0-20) H 05/25/23 08:56 Sodium 135 mmol/L (136-145) L 05/25/23 08:56 Potassium 4.2 mmol/L (3.5-5.1) 05/25/23 08:56 Chloride 104 mmol/L (98-107) 05/25/23 08:56 Carbon Dioxide 25 mmol/L (21-32) 05/25/23 08:56 Anion Gap 6 (3-11) 05/25/23 08:56 BUN 14 mg/dl (6-23) 05/25/23 08:56 Creatinine 0.62 mg/dl (0.6-1.4) 05/25/23 08:56 Est Cr Clr Drug Dosing 98.1 ml/min 05/25/23 08:56 Est GFR ( Amer) 111.7 ml/min 05/25/23 08:56 Est GFR (Non-Af Amer) 96.4 ml/min 05/25/23 08:56 BUN/Creatinine Ratio 22.6 (10-20) H 05/25/23 08:56 Glucose 137 mg/dl (70-99(Fasting)) H 05/25/23 08:56 Calcium 8.9 mg/dl (8.6-10.3) 05/25/23 08:56 Magnesium 2.2 mg/dl (1.7-2.4) 05/19/23 05:33 Total Bilirubin 0.7 mg/dl (0.2-1.0) 05/17/23 13:00 AST 18 U/L (13-39) 05/17/23 13:00 ALT 14 U/L (7-52) 05/17/23 13:00 Alkaline Phosphatase 93 U/L (34-104) 05/17/23 13:00 Total Protein 7.4 gm/dl (6.0-8.3) 05/17/23 13:00 Albumin 3.6 gm/dl (3.4-5.0) 05/17/23 13:00 Globulin 3.8 gm/dl (2.5-4.0) 05/17/23 13:00 Albumin/Globulin Ratio 0.9 (0.9-2) 05/17/23 13:00 Random Vancomycin 19.7 mcg/ml (10-20) 05/24/23 05:29 Impressions Finger X-Ray 05/17/23 12:47 XR finger(s) LT min 2V CLINICAL HISTORY: Left third finger injury with pain. COMPARISON STUDY: None. FINDINGS: Diffuse soft tissue swelling within the left third digit most pronounced distally. Soft tissue irregularity/laceration at the distal left third finger. Near complete bony destruction of the left third finger distal phalanx. Therefore, this is consistent with an osteomyelitis. IMPRESSION: Near complete bony destruction of the left third finger distal phalanx consistent with an osteomyelitis. ACT 112: Negative or not required by law. Electronically signed by: Carlos Roman M.D. 05/17/2023 1:17 PM Chest X-Ray 05/17/23 15:48 XR chest 1V portable HISTORY: pre-op COMPARISON: None. FINDINGS: No pneumothorax. No pleural effusions. The cardiac silhouette is mildly enlarged. No focal lung consolidations to suggest a pneumonia. There is mild diffuse interstitial thickening. This could be chronic or represent mild congestive change. Degenerative changes noted within the shoulders. No acute fractures. IMPRESSION: 1. Mild cardiomegaly. 2. Mild diffuse interstitial thickening. This could be chronic or represent developing congestive change. ACT 112: Negative or not required by law. Electronically signed by: Carlos Roman M.D. 05/17/2023 4:13 PM Hand MRI 05/18/23 08:01 MR hand LT wo/w con HISTORY: third finger osteomyelitis TECHNIQUE: Multiplanar multisequence MRI of the left hand was performed both before and after the intravenous administration of 8 cc of Gadavist contrast. COMPARISON STUDY: Left middle finger radiograph 05/17/2023. FINDINGS: There is again noted near complete bony destruction the distal phalanx of the left middle finger consistent with osteomyelitis. There is T2 hyperintense, T1 hypointense marrow signal within the mid to distal left third finger middle phalanx. This also demonstrates enhancement. Therefore, this is consistent with an additional site of osteomyelitis. No abnormal marrow signal or enhancement within the proximal phalanx of the middle finger. The remaining osseous structures demonstrate a normal marrow signal intensity. Degenerative changes within the interphalangeal joints again noted. Soft tissue swelling/e marsha throughout the middle finger associated enhancement consistent with a cellulitis. Probable dorsal skin ulceration seen at the distal finger. No loculated fluid collections to suggest an abscess. No acute fracture or dislocation. IMPRESSION: 1. Osteomyelitis involving the middle and distal phalanges of the left middle finger as described above near complete bony destruction of the distal phalanx. 2. No loculated fluid collections to suggest an abscess. 3. No additional sites of osteomyelitis within the left hand. ACT 112: Negative or not required by law. Electronically signed by: Carlos Roman M.D. 05/18/2023 2:49 PM
[2023-05-27] MEDS: CEFEPIME 2,000 MG in SYRINGE 0 ML IV SCH ×3 (00:33→18:03)
[2023-05-27 05:19] LABS: Creatinine Clr Calc Pharmacy 82.2 ml/min; Est GFR (African American) 103.8 ml/min; Est GFR (Non-African American) 89.6 ml/min
[2023-05-27] MEDS ORDERED: [UNRECOGNIZED DRUG - REMARK] ONE (07:30)
[2023-05-27] MEDS: VANCOMYCIN HCL 1,250 MG in SODIUM CHLORIDE 0.9% 250 ML IV SCH ×2 (07:48→19:58)
[2023-05-27] MEDS: LOSARTAN POTASSIUM 25 MG TAB PO SCH (07:48)
[2023-05-27] MEDS: ENOXAPARIN INJ 40 MG/0.4 ML SYR SQ SCH (07:48)
[2023-05-27] MEDS ORDERED: cefTRIAXone SODIUM 2,000 MG in DEXTROSE 5% 50 ML IV SCH (08:30)
--- NOTE | 2023-05-27 14:34 | Pharmacy Report ---
Pharmacy PK ABX Note - Date of Service May 27, 2023 - Assessment and Plan Assessment 05/27: * Day #11 of vancomycin and cefepime * Patient likely to be discharged tomorrow on this regimen 05/24: * Vancomycin level obtained this morning to confirm adequate dosing. * Level = 19.7 mcg/ml equates to AUC = 494 mg/L.hr at steady state which is within target AUC/BEATRIZ range and only 10% risk of nephrotoxicity. * Renal function remains stable; CrCl above 100 ml/min yesterday. 05/21 * Vancomycin level obtained this morning to ensure that current dosing regimen remains appropriate. * Level: 17.2 mcg/mL -- indicating adequate vanc dosing * Renal function remains stable. 05/19 * 78 year old M receiving vancomycin and cefepime for treatment of bone and joint infection. Renal function stable. No culture data. * Day #3 of antimicrobial therapy. Plan Vancomycin * Current regimen: 1250 mg IV every 12 hours * Random level obtained 05/27/23 resulted as 18.3 mcg/mL. This is predicted to achieve target AUC/BEATRIZ of ~600 mg/L.hr * Continue 1250 mg IV every 12 hours * Will repeat level in the next 48-72 hours if therapy is continued and/or change in patient clinical status Cefepime * 2 g IV q8h - no change Pharmacy will continue to follow and will adjust dose/frequency as necessary. Thank you. Pharmacy has transitioned to AUC monitoring for vancomycin. AUC/BEATRIZ is the preferred PK/PD target and is associated with decreased risk of nephrotoxicity compared to traditional trough targets.
--- NOTE | 2023-05-27 16:26 | Hospitalist Progress Note ---
Date of Service May 27, 2023 Assessment & Plan (1) Finger osteomyelitis, left: (2) Cellulitis: Plan: Patient is 78 y/o M with PMH HTN, h/o TBI and intracranial hemorrhage in 10/2022 presented to ER with c/o left 3rd finger swelling x 2 weeks after reported injur y from dog leash. Outpatient trial of cefadroxil with minimal improvement. Left 3rd Finger Osteomyelitis MRI - Osteomyelitis involving the middle and distal phalanges of the left middle finger as described above near complete bony destruction of the distal phalanx. Underwent left middle finger irrigation and debridement and amputation through middle phalangeal level on May 23, 2023. Discussed with surgeon; there is some residual osteomyelitis and middle phalanx. Gram stain and culture intraoperatively no growth till date Discussed with Dr. Faulkner; recommended vancomycin and cefepime for total of 6 weeks. PICC line consent taken from the patient. Prescription provided to the case management. Discussed with pharmacy regarding dosing of vancomycin; recommended 1250 mg twice daily. Weekly CBC, CMP and vancomycin trough to be faxed over to PCP. (3) Hyponatremia: Plan: Resolved with IV fluids Monitor (4) HTN (hypertension): Plan: H/O HTN. No longer on medications. Previously on lisinopril/HCTZ BP slightly elevated on presentation Started on losartan during the hospitalization. Blood pressure appears to be well controlled. (5) History of traumatic brain injury: (6) History of intracranial hemorrhage: Plan: H/O fall and intracranial hemorrhage, TBI, C2 fracture in 10/2022. Hospitalized at [facility]. (7) Tobacco use: Plan: Chewing tobacco Denies nicotine patch currently DVT PROPHYLAXIS SQ [facility] PT [facility] Please note the above document was generated using voice recognition software. It may contain grammatical, syntax or spelling errors. Any formal questions or concerns about the content, text or information contained within the body of this dictation should be directly addressed to the provider for clarification Admission and Anticipated Discharge Date Admission Date: May 17, 2023 Subjective Patient seen and examined at bedside. He is sitting up on the bed; not in any distress. Afebrile and saturating well on room air. Review of Systems Review of Systems: All systems reviewed & are unremarkable except as noted in Subjective Physical Exam Physical Exam: Constitutional: WD/WN, vitals as above, NAD, sitting up in bed, pleasant, conversing easily Respiratory: normal respiratory effort, lungs clear to auscultation, no wheeze, rales, rhonchi. Normal insp/exp effort, no accessory muscle use Cardiovascular: RRR, no murmur, no edema Vessels: no JVD or carotid bruit Chest: normal inspection of chest Abdomen: normal bowel sounds, soft, nontender, no hepatosplenomegaly Musculoskeletal: Dressing clean dry and intact in third finger of left hand. Skin: no rashes, warm and dry normal turgor Neurologic: PERRL, EOMI, accommodation nl, no face palsy, no dysarthria CN's II- XI intact bilaterally and moves all extremities Psychiatric: A+Ox3, euthymic affect Results & Data Results & Data Vital Signs (Past 12 Hours) Vital Signs Temp Pulse Resp BP Pulse Ox O2 Del Method 05/27/23 15:27 36.7 C 77 17 163/76 H 97 Room Air 05/27/23 08:18 36.4 C L 71 17 131/70 99 Room Air Laboratory Results Laboratory Results WBC 4.76 K/ul (4.8-10.8) L 05/25/23 08:56 RBC 5.49 M/uL (4.70-6.10) 05/25/23 08:56 Hgb 15.5 g/dl (14.0-18.0) 05/25/23 08:56 Hct 47.1 % (42.0-52.0) 05/25/23 08:56 MCV 85.8 fL (80.0-100.0) 05/25/23 08:56 MCH 28.2 pg (25.0-34.0) 05/25/23 08:56 MCHC 32.9 g/dL (32.0-36.0) 05/25/23 08:56 RDW Std Deviation 49.3 fL (36.4-46.3) H 05/25/23 08:56 RDW Coeff of Sylvia 15.8 % (11.5-14.5) H 05/25/23 08:56 Plt Count 195 K/uL (130-400) 05/25/23 08:56 MPV 9.8 fL (9.4-12.4) 05/25/23 08:56 Immature Gran % (Auto) 0.2 % 05/25/23 08:56 Neut % (Auto) 60.1 % 05/25/23 08:56 Lymph % (Auto) 23.5 % 05/25/23 08:56 Harrison % (Auto) 11.1 % 05/25/23 08:56 Eos % (Auto) 3.8 % 05/25/23 08:56 Baso % (Auto) 1.3 % 05/25/23 08:56 Neut # (Auto) 2.86 K/uL (1.40-6.50) 05/25/23 08:56 Lymph # (Auto) 1.12 K/uL (1.2-3.4) L 05/25/23 08:56 Harrison # (Auto) 0.53 K/uL (0.11-0.59) 05/25/23 08:56 Eos # (Auto) 0.18 K/uL (0-0.50) 05/25/23 08:56 Baso # (Auto) 0.06 K/uL (0-0.2) 05/25/23 08:56 Immature Gran # (Auto) 0.01 K/uL (0.01-0.20) 05/25/23 08:56 ESR 43 mm/hr (0-20) H 05/25/23 08:56 Sodium 135 mmol/L (136-145) L 05/25/23 08:56 Potassium 4.2 mmol/L (3.5-5.1) 05/25/23 08:56 Chloride 104 mmol/L (98-107) 05/25/23 08:56 Carbon Dioxide 25 mmol/L (21-32) 05/25/23 08:56 Anion Gap 6 (3-11) 05/25/23 08:56 BUN 14 mg/dl (6-23) 05/25/23 08:56 Creatinine 0.74 mg/dl (0.6-1.4) 05/27/23 04:41 Est Cr Clr Drug Dosing 82.2 ml/min 05/27/23 04:41 Est GFR ( Amer) 103.8 ml/min 05/27/23 04:41 Est GFR (Non-Af Amer) 89.6 ml/min 05/27/23 04:41 BUN/Creatinine Ratio 22.6 (10-20) H 05/25/23 08:56 Glucose 137 mg/dl (70-99(Fasting)) H 05/25/23 08:56 Calcium 8.9 mg/dl (8.6-10.3) 05/25/23 08:56 Magnesium 2.2 mg/dl (1.7-2.4) 05/19/23 05:33 Total Bilirubin 0.7 mg/dl (0.2-1.0) 05/17/23 13:00 AST 18 U/L (13-39) 05/17/23 13:00 ALT 14 U/L (7-52) 05/17/23 13:00 Alkaline Phosphatase 93 U/L (34-104) 05/17/23 13:00 Total Protein 7.4 gm/dl (6.0-8.3) 05/17/23 13:00 Albumin 3.6 gm/dl (3.4-5.0) 05/17/23 13:00 Globulin 3.8 gm/dl (2.5-4.0) 05/17/23 13:00 Albumin/Globulin Ratio 0.9 (0.9-2) 05/17/23 13:00 Random Vancomycin 18.3 mcg/ml (10-20) 05/27/23 04:41 Impressions Finger X-Ray 05/17/23 12:47 XR finger(s) LT min 2V CLINICAL HISTORY: Left third finger injury with pain. COMPARISON STUDY: None. FINDINGS: Diffuse soft tissue swelling within the left third digit most pronounced distally. Soft tissue irregularity/laceration at the distal left third finger. Near complete bony destruction of the left third finger distal phalanx. Therefore, this is consistent with an osteomyelitis. IMPRESSION: Near complete bony destruction of the left third finger distal phalanx consistent with an osteomyelitis. ACT 112: Negative or not required by law. Electronically signed by: Carlos Roman M.D. 05/17/2023 1:17 PM Chest X-Ray 05/17/23 15:48 XR chest 1V portable HISTORY: pre-op COMPARISON: None. FINDINGS: No pneumothorax. No pleural effusions. The cardiac silhouette is mildly enlarged. No focal lung consolidations to suggest a pneumonia. There is mild diffuse interstitial thickening. This could be chronic or represent mild congestive change. Degenerative changes noted within the shoulders. No acute fractures. IMPRESSION: 1. Mild cardiomegaly. 2. Mild diffuse interstitial thickening. This could be chronic or represent developing congestive change. ACT 112: Negative or not required by law. Electronically signed by: Carlos Roman M.D. 05/17/2023 4:13 PM Hand MRI 05/18/23 08:01 MR hand LT wo/w con HISTORY: third finger osteomyelitis TECHNIQUE: Multiplanar multisequence MRI of the left hand was performed both before and after the intravenous administration of 8 cc of Gadavist contrast. COMPARISON STUDY: Left middle finger radiograph 05/17/2023. FINDINGS: There is again noted near complete bony destruction the distal phalanx of the left middle finger consistent with osteomyelitis. There is T2 hyperintense, T1 hypointense marrow signal within the mid to distal left third finger middle phalanx. This also demonstrates enhancement. Therefore, this is consistent with an additional site of osteomyelitis. No abnormal marrow signal or enhancement within the proximal phalanx of the middle finger. The remaining osseous structures demonstrate a normal marrow signal intensity. Degenerative changes within the interphalangeal joints again noted. Soft tissue swelling/edema throughout the middle finger associated enhancement consistent with a cellulitis. Probable dorsal skin ulceration seen at the distal finger. No loculated fluid collections to suggest an abscess. No acute fracture or dislocation. IMPRESSION: 1. Osteomyelitis involving the middle and distal phalanges of the left middle finger as described above near complete bony destruction of the distal phalanx. 2. No loculated fluid collections to suggest an abscess. 3. No additional sites of osteomyelitis within the left hand. ACT 112: Negative or not required by law. Electronically signed by: Carlos Roman M.D. 05/18/2023 2:49 PM
[2023-05-28] MEDS: CEFEPIME 2,000 MG in SYRINGE 0 ML IV SCH ×3 (01:54→17:21)
[2023-05-28 06:52] LABS: BUN Creatinine Ratio 27.9 (10-20); Calcium 9.2 mg/dl (8.6-10.3); Creatinine Clr Calc Pharmacy 99.7 ml/min; Est GFR (African American) 112.4 ml/min; Potassium 4.6 mmol/L (3.5-5.1)
[2023-05-28] MEDS: VANCOMYCIN HCL 1,250 MG in SODIUM CHLORIDE 0.9% 250 ML IV SCH ×2 (07:41→19:33)
[2023-05-28] MEDS: ENOXAPARIN INJ 40 MG/0.4 ML SYR SQ SCH (07:42)
[2023-05-28] MEDS: LOSARTAN POTASSIUM 25 MG TAB PO SCH (07:43)
--- NOTE | 2023-05-28 17:00 | Hospitalist Progress Note ---
Date of Service May 28, 2023 Assessment & Plan (1) Finger osteomyelitis, left: (2) Cellulitis: Plan: Patient is 78 y/o M with PMH HTN, h/o TBI and intracranial hemorrhage in 10/2022 presented to ER with c/o left 3rd finger swelling x 2 weeks after reported injur y from dog leash. Outpatient trial of cefadroxil with minimal improvement. Left 3rd Finger Osteomyelitis MRI - Osteomyelitis involving the middle and distal phalanges of the left middle finger as described above near complete bony destruction of the distal phalanx. Underwent left middle finger irrigation and debridement and amputation through middle phalangeal level on May 23, 2023. Discussed with surgeon; there is some residual osteomyelitis and middle phalanx. Intraoperative culture- coag negative staph not lugdunensis Discussed with Dr. Faulkner; recommended vancomycin and cefepime for total of 6 weeks. PICC line placed Discussed with pharmacy regarding dosing of vancomycin; recommended 1250 mg twice daily. Weekly CBC, CMP and vancomycin trough to be faxed over to PCP. Patient unable to self administer IV antibiotics at home, now will need SNF placement --Case management following (3) Hyponatremia: Plan: Resolved with IV fluids Monitor (4) HTN (hypertension): Plan: H/O HTN. No longer on medications. Previously on lisinopril/HCTZ BP slightly elevated on presentation Started on losartan during the hospitalization. Blood pressure appears to be well controlled. (5) History of traumatic brain injury: (6) History of intracranial hemorrhage: Plan: H/O fall and intracranial hemorrhage, TBI, C2 fracture in 10/2022. Hospitalized at [facility]. (7) Tobacco use: Plan: Chewing tobacco Denies nicotine patch currently DVT PROPHYLAXIS SQ Lovenox PT OT ordered Dispopatient unable to self administer IV antibiotics at home, will need SNF placement, case management following Patient seen in collaboration with Dr. Fleming. Admission and Anticipated Discharge Date Admission Date: May 17, 2023 Supervising Physician Co-Signing Physician Notes Patient is seen and examined at bedside. Denies any pain of finger at surgical site. Denies any chest pain, dyspnea, dizziness, nausea, vomiting, abdominal pain. Currently on IV antibiotics for left finger osteomyelitis. Continue IV vancomycin, cefepime for 6 weeks as recommended by ID. Plan to discharge once rehab available. I personally reviewed the record. Patient is interviewed and examined at bedside. Patient's care is coordinated with Chante Guzman COMMAND[employer]. Please refer to the documentation above for details of patient's presentation and for discussion of other issues. Subjective Follow-up for left third finger osteomyelitis. Patient seen and examined. Offers no complaints, eager to be discharged. Unfortunately teaching for home antibiotic therapy did not go well. Will need SNF placement Review of Systems Review of Systems: All systems reviewed & are unremarkable except as noted in Subjective Physical Exam Constitutional: WD/WN, vitals as above no acute distress Respiratory: normal respiratory effort, lungs clear to auscultation Cardiovascular: Rate/Rhythm: regular rate and regular rhythm Vessels: normal peripheral pulses Extremities: no edema Gastrointestinal (Abdomen): Percussion/Palpation: abdomen soft; abdomen nontender Musculoskeletal: Dressing in place to left third finger, CSM checks intact to left hand Skin: no rashes, warm and dry Neurologic: no focal motor deficits Psychiatric: A+Ox3, euthymic affect Results & Data Results & Data Vital Signs (Past 12 Hours) Vital Signs Temp Pulse Resp BP Pulse Ox O2 Del Method 05/28/23 15:46 36.5 C 99 H 18 149/77 H 96 Room Air 05/28/23 07:35 36.5 C 62 16 137/84 97 Room Air Laboratory Results BMP 05/28/23 05:48 Sodium 135 L Potassium 4.6 Chloride 101 Carbon Dioxide 28 BUN 17 Creatinine 0.61 Glucose 88 Calcium 9.2
[2023-05-29] MEDS: CEFEPIME 2,000 MG in SYRINGE 0 ML IV SCH ×3 (01:29→17:58)
[2023-05-29] MEDS: VANCOMYCIN HCL 1,250 MG in SODIUM CHLORIDE 0.9% 250 ML IV SCH ×2 (07:32→19:57)
[2023-05-29] MEDS: ENOXAPARIN INJ 40 MG/0.4 ML SYR SQ SCH (07:35)
[2023-05-29] MEDS: LOSARTAN POTASSIUM 25 MG TAB PO SCH (07:35)
--- NOTE | 2023-05-29 14:50 | Hospitalist Progress Note ---
Date of Service May 29, 2023 Assessment & Plan (1) Finger osteomyelitis, left: (2) Cellulitis: Plan: Patient is 78 y/o M with PMH HTN, h/o TBI and intracranial hemorrhage in 10/2022 presented to ER with c/o left 3rd finger swelling x 2 weeks after reported injur y from dog leash. Outpatient trial of cefadroxil with minimal improvement. Left 3rd Finger Osteomyelitis MRI - Osteomyelitis involving the middle and distal phalanges of the left middle finger as described above near complete bony destruction of the distal phalanx. Underwent left middle finger irrigation and debridement and amputation through middle phalangeal level on May 23, 2023. Per surgeon, there is some residual osteomyelitis and middle phalanx. Intraoperative culture- coag negative staph not lugdunensis ID recommended vancomycin and cefepime for total of 6 weeks. PICC line placed Weekly CBC, CMP and vancomycin trough Patient unable to self administer IV antibiotics at home, will need SNF placement --Case management following (3) Hyponatremia: Plan: Resolved with IV fluids Monitor (4) HTN (hypertension): Plan: H/O HTN. No longer on medications. Previously on lisinopril/HCTZ BP slightly elevated on presentation Started on losartan during the hospitalization. Blood pressure appears to be well controlled. (5) History of traumatic brain injury: (6) History of intracranial hemorrhage: Plan: H/O fall and intracranial hemorrhage, TBI, C2 fracture in 10/2022. [facility]. (7) Tobacco use: Plan: Chewing tobacco Denies nicotine patch currently DVT PROPHYLAXIS SQ Lovenox PT OT ordered Dispopatient unable to self administer IV antibiotics at home, will need SNF placement, case management following Patient seen in collaboration with Dr. Fleming. Admission and Anticipated Discharge Date Admission Date: May 17, 2023 Supervising Physician Co-Signing Physician Notes Patient is seen and examined at bedside. No new complaints. Waiting for rehab placement for IV antibiotics. Denies any pain at surgical site. Also denies any chest pain, dyspnea, dizziness, nausea, vomiting, abdominal pain. Currently on IV antibiotics for left finger osteomyelitis. Continue IV vancomycin, cefepime for 6 weeks as recommended by ID. Plan to discharge once rehab available. I personally reviewed the record. Patient is interviewed and examined at bedside. Patient's care is coordinated with Chante Guzman [employer] CONSULTANT. Please refer to the documentation above for details of patient's presentation and for discussion of other issues. Subjective Follow-up for left third finger osteomyelitis. Patient seen and examined. Offers no complaints, eager to be discharged. No chest pain or shortness of breath. Denies abdominal pain and nausea. Left third finger pain controlled. Awaiting SNF placement for IV antibiotic Review of Systems Review of Systems: All systems reviewed & are unremarkable except as noted in Subjective Physical Exam Constitutional: WD/WN, vitals as above no acute distress Respiratory: normal respiratory effort, lungs clear to auscultation Cardiovascular: Rate/Rhythm: regular rate and regular rhythm Vessels: normal peripheral pulses Extremities: no edema Gastrointestinal (Abdomen): Percussion/Palpation: abdomen soft; abdomen nontender Musculoskeletal: Dressing in place to third middle finger, CSM checks intact Skin: no rashes, warm and dry Neurologic: no focal motor deficits Psychiatric: A+Ox3, euthymic affect Results & Data Results & Data Vital Signs (Past 12 Hours) Vital Signs Temp Pulse Resp BP Pulse Ox O2 Del Method 05/29/23 07:33 36.6 C 79 16 139/80 97 Room Air
[2023-05-30] MEDS: CEFEPIME 2,000 MG in SYRINGE 0 ML IV SCH ×3 (01:58→17:53)
[2023-05-30] MEDS: VANCOMYCIN HCL 1,250 MG in SODIUM CHLORIDE 0.9% 250 ML IV SCH ×2 (07:44→19:49)
[2023-05-30] MEDS: LOSARTAN POTASSIUM 25 MG TAB PO SCH (07:45)
[2023-05-30] MEDS: ENOXAPARIN INJ 40 MG/0.4 ML SYR SQ SCH (07:45)
[2023-05-30 08:48] LABS: Hematocrit (blood only) 48.1 % (42.0-52.0); Hemoglobin 15.7 g/dl (14.0-18.0); Mean Corpuscular Hemoglobin 28.3 pg (25.0-34.0); Mean Corpuscular Hgb Conc 32.6 g/dL (32.0-36.0); Mean Corpuscular Volume 86.8 fL (80.0-100.0); Mean Platelet Volume 10.3 fL (9.4-12.4); Platelet Count 198 K/uL (130-400); RDW Coefficient of Variation 15.7 % (11.5-14.5); RDW Standard Deviation 48.8 fL (36.4-46.3); Red Blood Count 5.54 M/uL (4.70-6.10)
[2023-05-30 09:01] LABS: BUN Creatinine Ratio 25.9 (10-20); Creatinine Clr Calc Pharmacy 104.8 ml/min; Est GFR (African American) 114.8 ml/min; Potassium 4.3 mmol/L (3.5-5.1)
--- NOTE | 2023-05-30 15:07 | Hospitalist Progress Note ---
Date of Service May 30, 2023 Assessment & Plan (1) Finger osteomyelitis, left: (2) Cellulitis: Plan: Patient is 78 y/o M with PMH HTN, h/o TBI and intracranial hemorrhage in 10/2022 presented to ER with c/o left 3rd finger swelling x 2 weeks after reported injur y from dog leash. Outpatient trial of cefadroxil with minimal improvement. Left 3rd Finger Osteomyelitis MRI - Osteomyelitis involving the middle and distal phalanges of the left middle finger as described above near complete bony destruction of the distal phalanx. Underwent left middle finger irrigation and debridement and amputation through middle phalangeal level on May 23, 2023. Per surgeon, there is some residual osteomyelitis and middle phalanx Intraoperative culture- coag negative staph not lugdunensis ID recommended vancomycin and cefepime for total of 6 weeks PICC line placed Weekly CBC, CMP and vancomycin trough Patient unable to self administer IV antibiotics at home, awaiting SNF placement (3) Hyponatremia: Plan: Resolved with IV fluids Monitor (4) HTN (hypertension): Plan: H/O HTN. Previously on lisinopril/HCTZ BP slightly elevated on presentation Started on losartan 25mg during the hospitalization but still intermittenly elevated - will increase to 50mg daily (5) History of traumatic brain injury: (6) History of intracranial hemorrhage: Plan: H/O fall and intracranial hemorrhage, TBI, C2 fracture in 10/2022. Hospitalized at [facility]. (7) Tobacco use: Plan: Chewing tobacco Denies nicotine patch currently DVT PROPHYLAXIS SQ Lovenox PT OT ordered Dispopatient unable to self administer IV antibiotics at home, will need SNF placement, case management following Patient seen in collaboration with Dr. Fleming. Admission and Anticipated Discharge Date Admission Date: May 17, 2023 Supervising Physician Co-Signing Physician Notes Patient is seen and examined at bedside. Offers no new complaints. Noted elevated BP. Denies any pain at surgical site. Also denies any chest pain, dyspnea, dizziness, nausea, vomiting, abdominal pain. Exam remains unchanged. Continue dressing changes as needed for surgical site. Agree with increasing losartan dose to 50 mg daily. Currently on IV antibiotics for left finger osteomyelitis. Continue IV vancomycin, cefepime for 6 weeks as recommended by ID. Plan to discharge once rehab available. I personally reviewed the record. Patient is interviewed and examined at bedside. Patient's care is coordinated with Pina cEkert PA-C. Please refer to the documentation above for details of patient's presentation and for discussion of other issues. Subjective Seen and examined in 314 in follow-up for left third finger osteomyelitis. Patient comfortable and sitting at edge of bed. No new issues overnight, eager to be discharged. Left third finger is wrapped, no pain. No chest pain or shortness of breath. Denies N/V, abdominal pain, dysuria, diarrhea or constipation. Awaiting SNF placement for IV antibiotic Review of Systems Review of Systems: At least ten systems reviewed and negative except as noted in the HPI. Physical Exam Physical Exam: Gen: WD/WN, NAD, sitting at side of bed, A&Ox3 HEENT: Normocephalic, atraumatic, conjunctivae moist, sclerae anicteric, mucous membranes moist Lung: Clear to Auscultation bilaterally, no wheezes/rales/rhonchi Heart: Regular rate, regular rhythm, no murmurs, rubs, or gallops Abdomen: Soft, NT, ND +BS x 4 Extremities: + distal third finger dressing c/d/i. No edema Skin: Warm, no rash Results & Data Results & Data Vital Signs (Past 12 Hours) Vital Signs Temp Pulse Resp BP Pulse Ox O2 Del Method 05/30/23 14:00 36.5 C 80 20 160/86 H 94 Room Air 05/30/23 07:00 36.4 C L 71 16 150/81 H 95 Room Air Laboratory Results Short CBC 05/30/23 Range/Units 07:28 WBC 5.20 (4.8-10.8) K/ul Hgb 15.7 (14.0-18.0) g/dl Hct 48.1 (42.0-52.0) % Plt Count 198 (130-400) K/uL BMP 05/30/23 07:28 Sodium 134 L Potassium 4.3 Chloride 103 Carbon Dioxide 27 BUN 15 Creatinine 0.58 L Glucose 92 Calcium 9.0 Diagnostic Findings Finger X-Ray 05/17/23 12:47 XR finger(s) LT min 2V CLINICAL HISTORY: Left third finger injury with pain. COMPARISON STUDY: None. FINDINGS: Diffuse soft tissue swelling within the left third digit most pronounced distally. Soft tissue irregularity/laceration at the distal left third finger. Near complete bony destruction of the left third finger distal phalanx. Therefore, this is consistent with an osteomyelitis. IMPRESSION: Near complete bony destruction of the left third finger distal phalanx consistent with an osteomyelitis. ACT 112: Negative or not required by law. Electronically signed by: Carlos Roman M.D. 05/17/2023 1:17 PM Chest X-Ray 05/17/23 15:48 XR chest 1V portable HISTORY: pre-op COMPARISON: None. FINDINGS: No pneumothorax. No pleural effusions. The cardiac silhouette is mildly enlarged. No focal lung consolidations to suggest a pneumonia. There is mild diffuse interstitial thickening. This could be chronic or represent mild congestive change. Degenerative changes noted within the shoulders. No acute fractures. IMPRESSION: 1. Mild cardiomegaly. 2. Mild diffuse interstitial thickening. This could be chronic or represent developing congestive change. ACT 112: Negative or not required by law. Electronically signed by: Carlos Roman M.D. 05/17/2023 4:13 PM Hand MRI 05/18/23 08:01 MR hand LT wo/w con HISTORY: third finger osteomyelitis TECHNIQUE: Multiplanar multisequence MRI of the left hand was performed both before and after the intravenous administration of 8 cc of Gadavist contrast. COMPARISON STUDY: Left middle finger radiograph 05/17/2023. FINDINGS: There is again noted near complete bony destruction the distal phalanx of the left middle finger consistent with osteomyelitis. There is T2 hyperintense, T1 hypointense marrow signal within the mid to distal left third finger middle phalanx. This also demonstrates enhancement. Therefore, this is consistent with an additional site of osteomyelitis. No abnormal marrow signal or enhancement within the proximal phalanx of the middle finger. The remaining osseous structures demonstrate a normal marrow signal intensity. Degenerative changes within the interphalangeal joints again noted. Soft tissue swelling/edema throughout the middle finger associated enhancement consistent with a cellulitis. Probable dorsal skin ulceration seen at the distal finger. No loculated fluid collections to suggest an abscess. No acute fracture or dislocation. IMPRESSION: 1. Osteomyelitis involving the middle and distal phalanges of the left middle finger as described above near complete bony destruction of the distal phalanx. 2. No loculated fluid collections to suggest an abscess. 3. No additional sites of osteomyelitis within the left hand. ACT 112: Negative or not required by law. Electronically signed by: Carlos Roman M.D. 05/18/2023 2:49 PM
[2023-05-30 21:58] VITALS: TEMP 97.5
[2023-05-31] MEDS: CEFEPIME 2,000 MG in SYRINGE 0 ML IV SCH ×2 (01:12→10:29)
[2023-05-31 05:55] LABS: Hemoglobin 15.4 g/dl (14.0-18.0); Mean Corpuscular Hemoglobin 27.7 pg (25.0-34.0); Mean Corpuscular Hgb Conc 32.1 g/dL (32.0-36.0); Mean Corpuscular Volume 86.3 fL (80.0-100.0); Platelet Count 193 K/uL (130-400); RDW Coefficient of Variation 15.4 % (11.5-14.5); RDW Standard Deviation 48.7 fL (36.4-46.3); Red Blood Count 5.56 M/uL (4.70-6.10); White Blood Count 5.77 K/ul (4.8-10.8)
[2023-05-31 06:12] LABS: BUN Creatinine Ratio 28.6 (10-20); Creatinine Clr Calc Pharmacy 108.6 ml/min; Est GFR (African American) 116.4 ml/min; Est GFR (Non-African American) 100.5 ml/min; Potassium 4.4 mmol/L (3.5-5.1)
[2023-05-31] MEDS ORDERED: [UNRECOGNIZED DRUG - REMARK] ONE (07:00)
--- NOTE | 2023-05-31 07:30 | Pharmacy Report ---
Pharmacy PK ABX Note - Date of Service May 31, 2023 - Assessment and Plan Assessment 05/31: * Still awaiting SNF placement * Renal function remains stable * Afebrile with no leukocytosis * Day #15 of vanco/cefepime w/ expected prolonged duration 05/27: * Day #11 of vancomycin and cefepime * Patient likely to be discharged tomorrow on this regimen 05/24: * Vancomycin level obtained this morning to confirm adequate dosing. * Level = 19.7 mcg/ml equates to AUC = 494 mg/L.hr at steady state which is within target AUC/BEATRIZ range and only 10% risk of nephrotoxicity. * Renal function remains stable; CrCl above 100 ml/min yesterday. 05/21 * Vancomycin level obtained this morning to ensure that current dosing regimen remains appropriate. * Level: 17.2 mcg/mL -- indicating adequate vanc dosing * Renal function remains stable. 05/19 * 78 year old M receiving vancomycin and cefepime for treatment of bone and joint infection. Renal function stable. No culture data. * Day #3 of antimicrobial therapy. Plan Vancomycin * Current regimen: 1250 mg IV every 12 hours * Random level obtained 05/31/23 resulted as 17.2 mcg/mL. This is predicted to achieve target AUC/BEATRIZ of 400-600 mg/L.hr * Predicted AUC at steady state: 488 mg/L.hr * Continue 1250 mg IV every 12 hours * Will repeat level if any change in patient clinical status Cefepime * 2 g IV q8h - no change Pharmacy will continue to follow and will adjust dose/frequency as necessary. Thank you. Pharmacy has transitioned to AUC monitoring for vancomycin. AUC/BEATRIZ is the preferred PK/PD target and is associated with decreased risk of nephrotoxicity compared to traditional trough targets.
[2023-05-31] MEDS: VANCOMYCIN HCL 1,250 MG in SODIUM CHLORIDE 0.9% 250 ML IV SCH (07:41)
[2023-05-31 07:43] VITALS: BP 144/85; PULSE 89; O2SAT 98
[2023-05-31] MEDS: ENOXAPARIN INJ 40 MG/0.4 ML SYR SQ SCH (07:43)
[2023-05-31] MEDS ORDERED: LOSARTAN POTASSIUM 50 MG TAB PO SCH (09:00)
--- NOTE | 2023-05-31 13:00 | Discharge Summary ---
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 D/c to SNF on IV abx, ortho follow- up Medication Changes From Visit Cefepime 2,000mg Q8H and vancomycin 1,250mg IV Q12H x 6 weeks (to complete July 04, 2023) Losartan 50mg daily Admission HPI Per Admitting Provider Patient is 78 y/o M with PMH HTN, h/o TBI and intracranial hemorrhage in 10/2022 presented to ER with c/o left 3rd finger swelling x 2 weeks. Patient states approximately 2 weeks ago noticed a "blood blister" to distal left third finger. He states he was walking his dog when the leash got caught on end of third finger. He reports fingernail fell off. Subsequently he states had diffuse erythema and edema of left finger that extended to left hand. PCP started patient on antibiotic. Pharmacy prescriptions filled reviewed and was prescribed cefadroxil 500 mg twice daily x10 days. Reports started taking on 05/08/2023. Since taking antibiotic patient states has had decreased edema and erythema to hand. He reports distal finger is mildly uncomfortable. Past couple days as noted purulent drainage from distal left third finger. Denies any other trauma or injury. Denies any known history of MRSA. Denies fever/chills, diaphoresis, N/V/D/C, BRO, dizziness, CP, SOB, cough, sore throat, rhinorrhea, abdominal pain, paresthesias, weakness, other extremity edema, rashes, urinary symptoms. Admission Exam Per Admitting Provider General: no distress, WDWN Head: normocephalic, atraumatic Eyes: conjunctiva non-injected, anicteric ENT: normal inspection external ears, nose, mucous membranes moist Neck: supple, trachea midline Lungs: clear, no respiratory distress, no wheezing/rhonchi/rales CV: RRR, no murmur, no pretibial edema Abd: normal BS, soft, non-tender Ext: no cyanosis, no calf tenderness; LUE: +left hand with mild edema, 3rd finger with diffuse erythema and severe edema, distal tuft finger with purulent drainage, fingernail is missing Neuro: A&O x 3, +slow, unsteady gait, no other focal deficits noted, normal affect Skin: warm, dry Principal Dx & Hospital Course #1 = Principal Diagnosis (1) Finger osteomyelitis, left: (2) Cellulitis: (3) Hyponatremia: (4) HTN (hypertension): (5) History of traumatic brain injury: (6) History of intracranial hemorrhage: (7) Tobacco use: Plan Patient is 78 y/o M with PMH HTN, h/o TBI and intracranial hemorrhage in 10/2022 presented to ER with c/o left 3rd finger swelling x 2 weeks after reported injury from dog leash who failed outpatient trial of cefadroxil and was admitted for Left 3rd Finger Osteomyelitis. MRI of finger revealed osteomyelitis inv olving the middle and distal phalanges of the left middle finger as described above near complete bony destruction of the distal phalanx. Underwent left middle finger irrigation and debridement and amputation through middle phalangeal level on May 23, 2023.Per surgeon, there is some residual osteomyelitis and middle phalanx. Intraoperative culture- coag negative staph not lugdunensis and ID recommended vancomycin and cefepime for total of 6 weeks. PICC line placed and discharging to SNF today for ongoing mgmt of IV abx. Weekly CBC, CMP and vancomycin trough needed. BP elevated throughout admission and patient was restarted on losartan and titrated up to 50mg daily. Dressing changed today, 05/31/23. Patient comfortable and hemodynamically stable at time of discharge to SNF. Discharge Exam Gen: WD/WN, NAD, sitting at side of bed, A&Ox3 HEENT: Normocephalic, atraumatic, conjunctivae moist, sclerae anicteric, mucous membranes moist Lung: Clear to Auscultation bilaterally, no wheezes/rales/rhonchi Heart: Regular rate, regular rhythm, no murmurs, rubs, or gallops Abdomen: Soft, NT, ND +BS x 4 Extremities: + distal third finger dressing c/d/i. No edema Skin: Warm, no rash Updated Medication List Medication Instructions Recorded Confirmed Type aspirin 81 mg tablet,delayed 81 mg PO QAM 05/17/23 05/17/23 History release cefepime 2 gram solution for 2 g IV Q8H #10 ea 05/31/23 Rx injection losartan 50 mg tablet 50 mg PO QAM #30 tabs 05/31/23 Rx vancomycin 1.25 gram intravenous 1.25 g IV Q12H #10 ea 05/31/23 Rx solution Hospital Stay Data Consultations 05/17/23 13:58 ED Decision to Admit Stat 05/17/23 15:42 Consult Orthopedic Surgery Routine 05/24/23 08:03 Consult Infectious Diseases Routine Procedures Performed Operation Date: 05/23/23 12:55 Actual Procedures p Left Middle Finger Incision and Drainage and Amputation(Left) - Rob Dorman M.D. Diagnostic Imagining Performed 05/18/23 08:01 MRI Hand [MR hand LT wo/w con] Routine Pending Results Patient Have Any Pending Studies at Discharge: No Discharge Instructions Given to Patient (Per Discharging Provider) MEDICATION CHANGES: Cefepime 2,000mg Q8H and vancomycin 1,250mg IV Q12H x 6 weeks (to complete July 04, 2023) Losartan 50mg daily SUMMARY OF TEST RESULTS: You were admitted to hospital 2/2 infection in left third finger. MRI is showed a bone infection involving the middle and distal phalanges of the left middle finger as described above near complete bony destruction of the distal phalanx. Underwent left middle finger irrigation and debridement and amputation through middle phalangeal level on May 23, 2023. Intraoperative culture growing coag negative staph not lugdunensis. ID recommended IV antibiotics as above. You were also restarted on a blood pressure medication as above. PENDING TEST RESULTS: None RECOMMENDATIONS FOR FOLLOW-UP: Follow up with PCP and orthopedic surgery as scheduled. Complete antibiotic in its entirety. Weekly CBC, CMP and vancomycin trough. OTHER INSTRUCTIONS: Seek medical attention if you have: * temperature above 101 * chest pain or trouble breathing * abdominal pain, nausea, vomiting * diarrhea, dark stools or bloody stools * any unanswered questions or concerns Call 911 if symptoms are severe. Please take good care of yourself. Call if you have any questions or problems. You can reach a [facility] hospitalist on duty at [facility] 24 hours a day by calling [phone]. Total Time Total Time Spent Total Time Spent (In Minutes): 45 Supervising Physician Co-Signing Physician Notes Patient is seen and examined at bedside on day of discharge. Plan to be discharged to SNF for IV antibiotics. Patient offers no new complaints today. Finger wound at surgical site showed no discharge, sutures intact. Blood pressure better today. Denies any pain at surgical site. Denies any chest pain, dyspnea, dizziness, nausea, vomiting, abdominal pain. Exam remains unchanged. Left middle finger osteomyelitis S/P I&D, amputation through middle phalanx. Continue IV antibiotics to complete 6-week course as recommended by in fectious disease. Continue dressing changes as needed for surgical site. Agree with increasing losartan dose to 50 mg daily. Currently on IV antibiotics (vancomycin, cefepime )for left finger osteomyelitis. Plan to discharge to SNF today. Advised to follow-up with PCP, orthopedic surgery. I personally reviewed the record. Patient is interviewed and examined at bedside. Patient's care is coordinated with Pina Eckert PA-C. Please refer to the documentation above for details of patient's presentation and for discussion of other issues.
== END 2023-05-31 14:46 | DRG 513 ==
LOC: ED 11:54 → EDINP 15:12 → SUATTDRO 15:12 → 3E 15:52